=== PATIENT | female | born 1975 | race Caucasian/White ===

== ENCOUNTER → 2017-06-25 17:24 | Outpatient (REF) | payer BC, SELFPAY | LOC: LAB 17:24 | PROVIDERS: Visit Provider Nurse Practitioner Obstetrics & Gynecology | DX: Z34.90 Encounter for supervision of normal pregnancy, unspecified, unspecified trimester (principal) | CPT/HCPCS: 86403 ==

== ENCOUNTER 2017-07-17 05:27 | Inpatient (IN) | payer BC, SELFPAY ==
[2017-07-16 20:30] VITALS: BP 119/55; PULSE 70; RESP 18; TEMP 36.6; O2SAT 97
[2017-07-17] VITALS (7 sets, daily range): BP systolic 97–133; BP diastolic 44–77; PULSE 14–78; RESP 14–20; TEMP 36.1–36.7; O2SAT 93–97; BMI 34.1
[2017-07-17 06:23] LABS: Basophils % 0.2 % (0.1-2.0); Eosinophils # 0.1 K/mm3 (0.0-0.4); Eosinophils % 1.6 % (0.1-12.0); Hematocrit 40.4 % (37.0-47.0); Hemoglobin 13.8 g/dL (12.2-16.2); Lymphocytes # 1.5 K/mm3 (0.7-4.5); Lymphocytes % 17.7 K/mm3 (10-50); Mean Corpuscular HGB Conc 34.1 g/dL (31.8-35.4); Mean Corpuscular Hemoglobin 31.5 pg (27.0-31.2); Mean Corpuscular Volume 92.5 fl (81-99); Monocytes # 0.6 K/mm3 (0.1-1.0); Monocytes % 7.3 % (1.7-9.3); Neutrophils # 6.2 K/mm3 (1.8-7.8); Neutrophils % 73.3 % (37.0-80.0); Platelet Count 165 K/mm3 (142-424); Red Blood Count 4.37 M/mm3 (4.20-5.40); Red Cell Distribution Width 13.1 % (11.5-17.5); White Blood Count 8.4 K/mm3 (4.8-10.8)
[2017-07-17 06:27] LABS: Anion Gap 8.3 mEq/L (5-15); Blood Urea Nitrogen 11 mg/dL (7-18); Carbon Dioxide 22 mmol/L (21.0-32.0); Chloride 104 mmol/L (98-107); Creatinine Clearance Estimated 179 mL/min (0-300); Creatinine,Serum 0.64 mg/dL (0.55-1.02); Estimated Glomerular Filt Rate 102 ml/min (>60); GFR (African American) 123 ML/MIN (>60); Glucose 88 mg/dL (74-106); Potassium 3.3 mmoL/L (3.5-5.1); Sodium 131 mmol/L (136-145)
--- NOTE | 2017-07-17 06:33 | US_ITS ---
US OB limited position: Indication: ITS.REASON: POSITION BREECH ORDERING PHYSICIAN: Vipul Steen MD PATIENT AGE: 42 years FINDINGS: Limited of obstetrical ultrasound performed to determine disposition. The fetus is in breech presentation. heart tones are present at 122 bpm. Biometric measurements and placental evaluation was not performed. IMPRESSION: Breech position of the fetus
--- NOTE | 2017-07-17 07:10 | HMH.ANESCL ---
[facility] Anesthesia Checklist - Patient Identification Patient Identification: Arm Band - Structural Data Admitted From: Home Planned Operative Procedure/s: primary c/s Consent for Planned Operative Procedure(s) Verified: Yes Verified Documents: Surgical Consent, History and Physical - NPO Status Verified Time NPO: 00:00 - Additional verifications Anesthesia Reactions: No - Airway Assessment C-Spine Mobility Assessed: Yes (mp2) TMJ Mobility Assessed: Yes Dentition: Good Dentition - Neurological Assessment Level of Consciousness: Awake, Alert - Anesthesia Plan Anesthesia Risk discussed: Yes Anesthesia Plan: Verified ASA Class: II Anesthesia Type: Spinal [facility] Anesthesia HX I have reviewed the patient's past medical history: Yes Medical History: Denies:: Anxiety, Asthma, Depression Laterality Cases: Bilateral: Tonsillectomy Other Surgeries: Yes: Tubal Ligation (plus reversal) Amputation: No Fractures: No *Family Hx:: Cancer, Heart Attack, Hypertension
--- NOTE | 2017-07-17 07:33 | P.HP_ITS ---
OB - H&P: HPI Antepartum - History of Present Illness Chief complaint: Breech presentation at term - History of Present Criteria for establishing EDC:: LMP confirmed by 1st trimester US care: good care Ultrasounds: normal 1st trimester US, normal mid trimester US, abnormal US findings Obstetrical complications: malpresentation Medical complications: none Planning to breastfeed?: Yes [facility] History I have reviewed the patient's past medical history: Yes Medical History: Denies:: Anxiety, Asthma, Depression Laterality Cases: Bilateral: Tonsillectomy Other Surgeries: Yes: Tubal Ligation (plus reversal) Amputation: No Fractures: No - *Social History Smoking Status: Former smoker # Packs/Day (cigarettes): 1 Alcohol Intake: former Alcohol Intake Frequency:: holidays/special occasions only Substance Use Type: denies use - Psychiatric History Pschychiatric History:: Denies:: Anxiety, Depression *Family Hx:: Cancer, Heart Attack, Hypertension Para: 3 Review of Systems - Review of Systems Review of systems:: pertinent systems reviewed and negative unless documented below Meds Home Medications Medication Instructions Recorded Confirmed Type ferrous sulfate 325 mg (65 mg 325 mg PO QDAY tab 05/15/17 History iron) tablet,delayed release 1 tab PO QDAY 05/15/17 History vitamin,calcium,pbexjozc-ojwr-laqff acid tablet Allergies Allergy/AdvReac Type Severity Reaction Status Date / Time Penicillins [PENICILLINS] Allergy Intermediate I-RASH Verified 07/15/17 14:57 OB - H&P: Exam - Physical Exam Vital signs: Temp Pulse Resp BP Pulse Ox 97.8 F 68 18 123/71 97 07/17/17 05:57 07/17/17 05:57 07/17/17 05:57 07/17/17 05:57 07/17/17 05:57 - Constitutional no acute distress OB - Results - Labs Labs: Short CBC 07/17/17 Range/Units 06:00 WBC 8.4 (4.8-10.8) K/mm3 Hgb 13.8 (12.2-16.2) g/dL Hct 40.4 (37.0-47.0) % Plt Count 165 (142-424) K/mm3 BMP 07/17/17 06:00 Sodium 131 L Potassium 3.3 L Chloride 104 Carbon Dioxide 22 BUN 11 Creatinine 0.64 Glucose 88 OB - A/P Antepartum (1) Breech presentation at Current visit: Yes Status: Acute - Additional Plan Plan: other (Her baby continues to be in the breech presentation and we will perform a primary lower segment transverse section.) Planning to breastfeed?: Yes
[2017-07-17 07:57] LABS: Cord Blood PH 7.38 (7.35-7.45)
--- NOTE | 2017-07-17 08:29 | HMH.OPNOTE ---
Date of procedure: 07/17/17 Pre-op Diagnosis:: Term , breech presentation Post-op Diagnosis:: Term , breech presentation Procedure performed:: Mammary lower segment transverse section Surgeon:: Vipul Steen MD Yard Hostler(s):: Rosaline Reynaga [employer] SUPERVISOR:: Dickson Glass Anesthesia: spinal Estimated blood loss (mL): 600 Clinical Note:: She is a 42-year-old 4 para 3 who is 39 weeks gestational age. She has been followed over the last few weeks with a breech presentation and since she was term we elected to perform a primary lower segment transverse section. Risks and benefits of surgery were discussed with the patient prior to surgery. Operative findings:: She delivered a liveborn male child at 7:49 AM on the morning of July 17, 2017. The baby was in the angelica breech presentation. He had Apgars of 9 at 1 minute and 10 at 5 minutes. PH was 7.38. Operative note:: She was taken to the operating room where spinal anesthesia was found be adequate. She was prepped and draped in normal sterile fashion in the supine position with a leftward tilt. A Pulido catheter was in the bladder. A Pfannenstiel skin incision was made with knife then carried through to the underlying layer of fascia with cautery. The fascia was opened in the midline with cautery and extended laterally using Lim scissors. [place] clamps were applied to the superior aspect of the fascial incision which was tented up and the underlying rectus muscles dissected off using cautery. The [place] clamps were then applied to the inferior aspect of the fascial incision which in a similar fashion was tented up and the underlying rectus muscles dissected off using cautery. The rectus muscles were then in the midline, the peritoneum identified, and entered sharply with Metzenbaum scissors. This incision was then extended superiorly and inferiorly with cautery. We had good visualization of the bladder inferiorly. The bladder peritoneum was then opened in the midline and extended laterally using Metzenbaum scissors. A bladder flap was created digitally. The lower blade of the Mo was inserted so as to push the bladder out of the way. Transverse incision was made through the uterine muscle to the amnion. This incision was then extended laterally using fingers traction. The amnion was entered sharply with knife. The 's breech was then delivered atraumatically. This was followed by the after coming shoulders and the rest of the 's head atraumatically. The oropharynx and nasopharynx were bulb suctioned. The infant was then handed off to her Miguel who assigned Apgars of 9 at 1 minute and 10 at 5 minutes. We then obtained cord blood as well as cord pH. The pH was 7.38 Using gentle traction on the cord and countertraction on the fundus I was able to easily deliver the placenta intact. It had a normal three-vessel cord. The uterus was then cleared of clots and debris and exteriorized from the abdominal cavity. The uterine incision was then closed using running 0 Vicryl suture in a locked fashion. A second layer of the same suture was used to imbricate the first layer. A third layer was further used to completely imbricate the uterine muscle. The bladder peritoneum was then closed using running 2-0 Vicryl suture in a locked fashion. This large piece of [place]elf[place]am between the peritoneum and muscle of the uterus prior to completely closing the peritoneum of the bladder. The gutters and cul-de-sac were then cleared of clots and debris and the uterus was returned the abdominal cavity. Once again hemostasis was assured. The peritoneum was grasped with [place] clamps and closed using running 2-0 Vicryl suture. The rectus muscles were then reapproximated using running 0 Vicryl suture. The fascia was closed using running #1 Vicryl suture. The subcutaneous tissues were then irrigated with warm water followed by closure Pamela's fascia using running 2-0 [place]
--- NOTE | 2017-07-17 08:33 | P.OP_ITS ---
Date of procedure: 07/17/17 Pre-op Diagnosis:: Term , breech presentation Post-op Diagnosis:: Term , breech presentation Procedure performed:: Mammary lower segment transverse section Surgeon:: Vipul Steen MD Supervisor [employer](s):: Rosaline Reynaga QUALITY ASSURANCE ENGINEER:: Dickson Glass Anesthesia: spinal Estimated blood loss (mL): 600 Clinical Note:: She is a 42-year-old 4 para 3 who is 39 weeks gestational age. She has been followed over the last few weeks with a breech presentation and since she was term we elected to perform a primary lower segment transverse section. Risks and benefits of surgery were discussed with the patient prior to surgery. Operative findings:: She delivered a liveborn male child at 7:49 AM on the morning of July 17, 2017. The baby was in the angelica breech presentation. He had Apgars of 9 at 1 minute and 10 at 5 minutes. PH was 7.38. Operative note:: She was taken to the operating room where spinal anesthesia was found be adequate. She was prepped and draped in normal sterile fashion in the supine position with a leftward tilt. A Pulido catheter was in the bladder. A Pfannenstiel skin incision was made with knife then carried through to the underlying layer of fascia with cautery. The fascia was opened in the midline with cautery and extended laterally using Lim scissors. [place] clamps were applied to the superior aspect of the fascial incision which was tented up and the underlying rectus muscles dissected off using cautery. The [place] clamps were then applied to the inferior aspect of the fascial incision which in a similar fashion was tented up and the underlying rectus muscles dissected off using cautery. The rectus muscles were then in the midline, the peritoneum identified, and entered sharply with Metzenbaum scissors. This incision was then extended superiorly and inferiorly with cautery. We had good visualization of the bladder inferiorly. The bladder peritoneum was then opened in the midline and extended laterally using Metzenbaum scissors. A bladder flap was created digitally. The lower blade of the Mo was inserted so as to push the bladder out of the way. Transverse incision was made through the uterine muscle to the amnion. This incision was then extended laterally using fingers traction. The amnion was entered sharply with knife. The 's breech was then delivered atraumatically. This was followed by the after coming shoulders and the rest of the 's head atraumatically. The oropharynx and nasopharynx were bulb suctioned. The infant was then handed off to her Miguel who assigned Apgars of 9 at 1 minute and 10 at 5 minutes. We then obtained cord blood as well as cord pH. The pH was 7.38 Using gentle traction on the cord and countertraction on the fundus I was able to easily deliver the placenta intact. It had a normal three-vessel cord. The uterus was then cleared of clots and debris and exteriorized from the abdominal cavity. The uterine incision was then closed using running 0 Vicryl suture in a locked fashion. A second layer of the same suture was used to imbricate the first layer. A third layer was further used to completely imbricate the uterine muscle. The bladder peritoneum was then closed using running 2-0 Vicryl suture in a locked fashion. This large piece of [place] between the peritoneum and muscle of the uterus prior to completely closing the peritoneum of the bladder. The gutters and cul-de-sac were then cleared of clots and debris and the uterus was returned the abdominal cavity. Once again hemostasis was assured. The peritoneum was grasped with [place] clamps and closed usin
--- NOTE | 2017-07-17 08:33 | HMH.ANESI ---
[facility] Anesthesia Record Part I Intake, IV Amount: 1,800 Estimated blood loss (mL): 600 Urine output (mL): 100 Blood Pressure: 133/46 SaO2: 93 Pulse Rate: 14 Respiratory Rate: 14 Temperature: 97 F Patient is:: Awake, Stable Stable to PACU at:: 08:30
--- NOTE | 2017-07-17 08:34 | HMH.ANESII ---
[facility] Anesthesia Record Part II Discharge Time: 09:00 Destination: Obstetric PACU nurse assessment reviewed?: Yes Patient Condition:: Good Anesthesia Complications:: None
--- NOTE | 2017-07-17 09:41 | P.PN_ITS ---
Internal Medicine - PN: Subj *Date: 07/17/17 *Time: 09:40 Interval history: Patient had low blood pressure post . It was 88/50. Is now 110/60. She has not put out much urine since her surgery. On examination she looks well her color is good her cheeks are darlyn. I suspect she is just dehydrated and vasodilated as result of the spinal. We will get an H&H and we will give her more fluids. We will continue to monitor her closely. Her uterus is well contracted. Her lochia is minimal. Exam Vital signs and Labs for Last 24 Hours: Temp Pulse Resp BP Pulse Ox 97 F L 68 18 104/58 95 07/17/17 08:34 07/17/17 08:40 07/17/17 08:40 07/17/17 08:40 07/17/17 08:40 Laboratory Results - last 24 hr 07/17/17 06:00: WBC 8.4, RBC 4.37, Hgb 13.8, Hct 40.4, MCV 92.5, MCH 31.5 H, MCHC 34.1, RDW 13.1, Plt Count 165, MPV 10.0, Neut % (Auto) 73.3, Lymph % (Auto ) 17.7, [place] % (Auto) 7.3, Eos % (Auto) 1.6, Baso % (Auto) 0.2, Neut # (Auto) 6.2, Lymph # (Auto) 1.5, [place] # (Auto) 0.6, Eos # (Auto) 0.1, Baso # (Auto) 0.0 07/17/17 06:00: Sodium 131 L, Potassium 3.3 L, Chloride 104, Carbon Dioxide 22, Anion Gap 8.3, BUN 11, Creatinine 0.64, Estimated Creat Clear 179, Estimated GFR 102, Est GFR ( Amer) 123, Glucose 88 07/17/17 06:00: Blood Type O Negative, Antibody Screen Negative 07/17/17 07:50: Cord ABG pH 7.38 I & O for Last 24 hours: Intake & Output 07/14/17 07/15/17 07/16/17 07/17/17 11:59 11:59 11:59 11:59 Intake Total 1799 / 1800 Balance 1800 / 1800 Weight 218 lb 2 oz - Constitutional no acute distress Assessment and Plan (1) Breech presentation at Current visit: Yes Status: Acute Category: Medical Code(s): O32.1XX0 - Maternal care for breech presentation, not applicable or unspecified - Assessment and plan all Dx Assessment and Plan for all problems:: She has good color so I do not suspect that she is actively bleeding. We will give her more fluids since she is likely dehydrated. We have ordered an H&H.
[2017-07-17 09:51] LABS: Hematocrit 37.4 % (37.0-47.0)
[2017-07-17 09:54] LABS: Hemoglobin 12.2 g/dL (12.2-16.2)
--- NOTE | 2017-07-17 12:11 | SUR.OPER ---
749-viable infant male born at this time
[2017-07-17 12:52] LABS: Microscopic,Cath URINE MICROSCOPIC (MICROSCOPIC)
[2017-07-17 12:55] LABS: Appearance,Urine/Cath CLEAR (Clear); Bilirubin,Cath Negative (Negative); Blood, Urine/Cath Negative (Negative); Color,Urine/Cath YELLOW (Yellow); Glucose,Urine/Cath (UA) Negative (Negative); Ketones,Urine/Cath Negative (Negative); Leukocyte Esterase,Cath Negative (Negative); Nitrate,Cath Negative (Negative); Protein,Urine/Cath Negative (Negative); Specific Gravity, Urine/Cath 1.025 (1.005-1.030); Urobilinogen,Cath 0.2 EU/dl (0.2)
[2017-07-17 13:07] LABS: Bacteria,Urine/Cath 1+ /lpf; RBC,Urine/Cath Occasional # /hpf (0-3)
[2017-07-18 06:36] LABS: Basophils % 0.1 % (0.1-2.0); Eosinophils # 0.1 K/mm3 (0.0-0.4); Eosinophils % 0.8 % (0.1-12.0); Hematocrit 35.3 % (37.0-47.0); Hemoglobin 11.7 g/dL (12.2-16.2); Lymphocytes # 1.3 K/mm3 (0.7-4.5); Lymphocytes % 11.4 K/mm3 (10-50); Mean Corpuscular HGB Conc 33.1 g/dL (31.8-35.4); Mean Corpuscular Hemoglobin 30.9 pg (27.0-31.2); Mean Corpuscular Volume 93.3 fl (81-99); Mean Platelet Volume 10.3 fl (7.4-10.4); Monocytes # 0.8 K/mm3 (0.1-1.0); Neutrophils # 9.3 K/mm3 (1.8-7.8); Neutrophils % 80.8 % (37.0-80.0); Platelet Count 154 K/mm3 (142-424); Red Blood Count 3.78 M/mm3 (4.20-5.40); Red Cell Distribution Width 13.2 % (11.5-17.5); White Blood Count 11.5 K/mm3 (4.8-10.8)
--- NOTE | 2017-07-18 07:52 | P.PN_ITS ---
Internal Medicine - PN: Subj *Date: 07/18/17 *Time: 07:52 Interval history: She is doing well this morning. She is eating and drinking and ambulating. She is breast-feeding. Her pain is well controlled. Her incision is clean and dry. Exam Vital signs and Labs for Last 24 Hours: Temp Pulse Resp BP Pulse Ox 98.0 F 78 18 111/77 95 07/17/17 09:00 07/17/17 09:00 07/17/17 16:18 07/17/17 09:00 07/17/17 09:00 Laboratory Results - last 24 hr 07/17/17 06:00: Blood Type O Negative, Antibody Screen Negative 07/17/17 06:20: Baby's Rh Status Positive 07/17/17 07:25: Urine Color Yellow, Urine Appearance Clear, Urine pH 6.0, Ur Specific [place] 1.025, Urine Protein Negative, Urine Glucose (UA) Negative, Urine Ketones Negative, Urine Blood Negative, Urine Nitrate Negative, Urine Bilirubin Negative, Urine Urobilinogen 0.2, Ur Leukocyte Esterase Negative, Urine RBC Occasional, Urine WBC 3-5, Ur Squamous Epith Cells 5-10, Urine Bacteria 1+, Hyaline Casts 3-5 07/17/17 07:50: Cord ABG pH 7.38 07/17/17 09:35: Hgb 12.2 D, Hct 37.4 07/18/17 06:20: WBC 11.5 H D, RBC 3.78 L, Hgb 11.7 L, Hct 35.3 L, MCV 93.3, MCH 30.9, MCHC 33.1, RDW 13.2, Plt Count 154, MPV 10.3, Neut % (Auto) 80.8 H, Lymph % (Auto) 11.4, [place] % (Auto) 7.0, Eos % (Auto) 0.8, Baso % (Auto) 0.1, Neut # ( Auto) 9.3 H, Lymph # (Auto) 1.3, [place] # (Auto) 0.8, Eos # (Auto) 0.1, Baso # ( Auto) 0.0 I & O for Last 24 hours: Intake & Output 07/15/17 07/16/17 07/17/17 07/18/17 11:59 11:59 11:59 11:59 Intake Total 1800 / 1800 Output Total 100 / 100 Balance 1700 / 1700 Weight 218 lb 2 oz - Constitutional no acute distress Assessment and Plan (1) Breech presentation at Current visit: Yes Status: Acute Category: Medical Code(s): O32.1XX0 - Maternal care for breech presentation, not applicable or unspecified - Assessment and plan all Dx Assessment and Plan for all problems:: She continues to do very well. She will be discharged home in 48 hours.
--- NOTE | 2017-07-18 07:55 | HMH.PHAVTE ---
[facility] Pharmacy VTE Monitoring - Patient Demographics Admission date: 07/17/17 Report Date: 07/18/17 Time: 07:55 Allergies/Adverse Reactions: Patient Allergies Penicillins [PENICILLINS] Allergy (Intermediate, Verified 07/15/17 14:57) I-RASH Height: 1.7 m Weight: 98.94 kg Patient Problems: Current Active Problems Breech presentation at (Acute) - VTE Risk Labs: VTE Related Lab Results Hgb 11.7 g/dL (12.2-16.2) L 07/18/17 06:20 Hct 35.3 % (37.0-47.0) L 07/18/17 06:20 Plt Count 154 K/mm3 (142-424) 07/18/17 06:20 BUN 11 mg/dL (7-18) 07/17/17 06:00 Creatinine 0.64 mg/dL (0.55-1.02) 07/17/17 06:00 Estimated Creat Clear 179 mL/min (0-300) 07/17/17 06:00 Clinical Trial Participant: No - Prophylaxis VTE Prophylaxis Ordered?: Yes Types of VTE Prophylaxis: IPCS Knee High
--- NOTE | 2017-07-19 09:18 | CARE MANAGER ---
MOM AND ARE DOING WELL AND WILL DISCHARGE OVER THE WEEKEND WITH AFTERCARE INSTRUCTIONS.
--- NOTE | 2017-07-19 09:33 | HMH.ACPN2 ---
Internal Medicine - PN: Subj *Date: 07/19/17 *Time: 09:33 Interval history: She is doing very well this morning. She is eating and drinking and ambulating. She is breast-feeding. Her lochia is normal. Exam Vital signs and Labs for Last 24 Hours: Temp Pulse Resp BP Pulse Ox 98.0 F 78 18 111/77 95 07/17/17 09:00 07/17/17 09:00 07/17/17 16:18 07/17/17 09:00 07/17/17 09:00 I & O for Last 24 hours: Intake & Output 07/16/17 07/17/17 07/18/17 07/19/17 11:59 11:59 11:59 11:59 Intake Total 1800 / 1800 Output Total 100 / 100 Balance 1700 / 1700 Weight 218 lb 2 oz 218 lb 2 oz - Constitutional no acute distress Assessment and Plan (1) Breech presentation at Current visit: Yes Status: Acute Category: Medical Code(s): O32.1XX0 - Maternal care for breech presentation, not applicable or unspecified - Assessment and plan all Dx Assessment and Plan for all problems:: She continues to do very well. We will plan to send her home tomorrow.
--- NOTE | 2017-07-20 13:43 | HMH.DCSUM ---
General - General Admission date: 07/17/17 Discharge date: 07/20/17 HPI HPI: POD # 3 primary cs for breech presentation. Postop course uneventful; ambulating, voiding & tolerating regular diet without difficulty. Lochia appropriate; postop Hgb mild anemia 11.7, asymptomatic. discharged home with f/u 1 week office. Hospital Course Hospital Course: per HPI note Objective Vital signs: Temp Pulse Resp BP Pulse Ox 98.0 F 78 18 111/77 95 07/17/17 09:00 07/17/17 09:00 07/17/17 16:18 07/17/17 09:00 07/17/17 09:00 no acute distress - *Routine Abdominal Exam Present: soft Comments: appropriately tender, non-distended - *Routine Extremities Exam Present: edema (1+) - *Routine Skin Exam Present: intact, dry, warm - *Routine Neurological Exam Present: alert, oriented X3 - Routine Psychiatric Exam Present: normal affect DS: Diagnosis - Discharge Diagnosis (1) Delivered by section Status: Acute Problem details: continue routine postop care. (2) Breech presentation at Status: Acute Problem details: primary cs for delivery (3) Anemia associated with acute blood loss Status: Acute Problem details: mild anemia 11.7, asymptomatic. continue PNV with feso4 Discharge Plan - Patient Discharge Instructions ACTIVITY: Limited activity, No heavy lifting DIET: advance to your usual diet Patient Instructions: DI for , DI for and Nipple Soreness - Follow up Plan Disposition: Home, Self-Long Term Medications: Home Medications Medication Instructions Recorded Confirmed Type ferrous sulfate 325 mg (65 mg 325 mg PO DAILY tab 05/15/17 07/17/17 History iron) tablet,delayed release 1 tab PO DAILY 05/15/17 07/17/17 History vitamin,calcium,okclqqqs-lqmv-aairk acid tablet Prescriptions/Medication Reconciliation: New Ibuprofen [Motrin 400mg tablet] 400 mg PO Q4HP PRN tablet PRN Reason: Mild To Moderate Pain Oxycodone HCl [OxyIR 5mg tablet] 5 mg PO Q4HP PRN #30 tablet PRN Reason: Moderate Pain Acetaminophen [Acetaminophen 325mg tab] 650 mg PO Q4HP PRN tablet PRN Reason: Mild Pain Continue vitamin,calcium,bnspbmfr-axxm-yiejp acid tablet 1 tab PO DAILY No Action ferrous sulfate 325 mg (65 mg iron) tablet,delayed release 325 mg PO DAILY tab
--- NOTE | 2017-07-20 15:46 | P.DS_ITS ---
General - General Admission date: 07/17/17 Discharge date: 07/20/17 HPI HPI: POD # 3 primary cs for breech presentation. Postop course uneventful; ambulating, voiding & tolerating regular diet without difficulty. Lochia appropriate; postop Hgb mild anemia 11.7, asymptomatic. discharged home with f/u 1 week office. Hospital Course Hospital Course: per HPI note Objective Vital signs: Temp Pulse Resp BP Pulse Ox 98.0 F 78 18 111/77 95 07/17/17 09:00 07/17/17 09:00 07/17/17 16:18 07/17/17 09:00 07/17/17 09:00 no acute distress - *Routine Abdominal Exam Present: soft Comments: appropriately tender, non-distended - *Routine Extremities Exam Present: edema (1+) - *Routine Skin Exam Present: intact, dry, warm - *Routine Neurological Exam Present: alert, oriented X3 - Routine Psychiatric Exam Present: normal affect DS: Diagnosis - Discharge Diagnosis (1) Delivered by section Status: Acute Problem details: continue routine postop care. (2) Breech presentation at Status: Acute Problem details: primary cs for delivery (3) Anemia associated with acute blood loss Status: Acute Problem details: mild anemia 11.7, asymptomatic. continue PNV with feso4 Discharge Plan - Patient Discharge Instructions ACTIVITY: Limited activity, No heavy lifting DIET: advance to your usual diet Patient Instructions: DI for , DI for and Nipple Soreness - Follow up Plan Disposition: Home, Self-Longterm Medications: Home Medications Medication Instructions Recorded Confirmed Type ferrous sulfate 325 mg (65 mg 325 mg PO DAILY tab 05/15/17 07/17/17 History iron) tablet,delayed release 1 tab PO DAILY 05/15/17 07/17/17 History vitamin,calcium,wwwjjdvv-wwwk-lfqow acid tablet Prescriptions/Medication Reconciliation: New Ibuprofen [Motrin 400mg tablet] 400 mg PO Q4HP PRN tablet PRN Reason: Mild To Moderate Pain Oxycodone HCl [OxyIR 5mg tablet] 5 mg PO Q4HP PRN #30 tablet PRN Reason: Moderate Pain Acetaminophen [Acetaminophen 325mg tab] 650 mg PO Q4HP PRN tablet PRN Reason: Mild Pain Continue vitamin,calcium,kmthlehi-twfj-xqatj acid tablet 1 tab PO DAILY No Action ferrous sulfate 325 mg (65 mg iron) tablet,delayed release 325 mg PO DAILY tab
== END 2017-07-20 17:10 | disposition home or self-care (01) | DRG 766 ==
PROVIDERS: Admitting Provider Nurse Practitioner Obstetrics & Gynecology; Family Provider Family Medicine; PCP Family Medicine; Visit Provider Nurse Practitioner Obstetrics & Gynecology
PROC: 10D00Z1 Extraction of Products of Conception, Low, Open Approach (ICD-10-PCS; CPT 59514; principal; 2017-07-17 07:30)
DX: O64.1XX0 Obstructed labor due to breech presentation, not applicable or unspecified (principal); Z37.0 Single live birth; Z3A.39 39 weeks gestation of pregnancy
CPT/HCPCS: 59514; 36415; 59025; 76815; 80048; 81001; 82800; 85014; 85018; 85025; 85461; 86850; J1956; J2790

== ENCOUNTER 2017-07-26 22:25 | Inpatient (IN) | payer BC, SELFPAY ==
[2017-07-26 22:31] VITALS: BP 160/114; PULSE 57; RESP 20; TEMP 36.5; O2SAT 97; BMI 34.4
--- NOTE | 2017-07-26 22:39 | XR_ITS ---
XR chest 2V COMPARISON: CT scan the chest 07/27/2017 HISTORY: Shortness of breath TECHNIQUE: PA and lateral chest FINDINGS: This is an adequate inspiration. There are bilateral pleural effusions larger right side than left. There are subtle patchy ill-defined opacities in both lung crooks. Evaluation of the pulmonary vascularity is somewhat difficult but there is no obvious pulmonary congestion. There is an azygos lobe noted. There is an area of increased opacity projecting over the right heart border at the cardiophrenic angle and focal pneumonic infiltrate versus partial right lower lobe collapse possibilities. IMPRESSION: 1. Mild cardio megaly with bilateral pleural effusions and certainly chronic congestive heart failure is a possibility. 2. Somewhat ill-defined opacities in the perihilar regions and at the right cardiophrenic angle and bilateral diffuse pneumonic infiltrates a possibility as well.
--- NOTE | 2017-07-26 22:49 | HMH.EDGENADL ---
ED Disposition Clinical Impression: Pleural effusion, Peripheral edema, Hemoptysis Hypertension Qualifiers: Hypertension type: unspecified Qualified Code(s): I10 - Essential (primary) hypertension Dyspnea Qualifiers: Dyspnea type: shortness of breath Qualified Code(s): R06.02 - Shortness of breath Disposition: Still a Patient Condition on Discharge: Good Referrals: Kyle Rivera MD [Primary Care Provider] - - Critical Care Critical Care Time: Yes Attestation: On 07/26/17, the high probability of a clinically significant, sudden or life threatening deterioration of the following system(s) required my full and direct attention, intervention and personal management. The time I documented below is in addition to time spent performing reported procedures but includes the following listed in this critical care notation. Total Critical Care Time: 45 Vital system(s) involved:: Circulatory Failure My critical care processes included: Assessment & monitoring of V/S, Initial and Re-exams, Data Review/Interpretation, Coordinating Care, Medication Orders and management, Documentation Medical Decision Making - Lan Inquiry Pt receiving controlled substance: No Vital Signs: 07/26/17 22:31 07/26/17 23:26 07/27/17 03:30 Temperature 97.7 F 98.9 F Temperature Source Oral Oral Pulse Rate [Right Radial] 57 L 63 77 Respiratory Rate 20 20 Blood Pressure [Right Arm] 160/114 139/97 129/105 Blood Pressure Mean [Right Arm] 129 111 113 Blood Pressure Source [Right Arm] Automatic Cuff Blood Pressure Position [Right Arm] Sitting Supine Sitting 02 Sat by Pulse Oximetry 97 95 99 Oxygen Delivery Method Room Air 07/27/17 03:48 Temperature 98.9 F Temperature Source Oral Pulse Rate [Right Radial] 62 Respiratory Rate 20 Blood Pressure [Right Arm] 168/82 Blood Pressure Mean [Right Arm] 110 Blood Pressure Source [Right Arm] Manual Cuff/ Auscultation Blood Pressure Position [Right Arm] Sitting 02 Sat by Pulse Oximetry 99 Oxygen Delivery Method Room Air - Lab Data Lab Results 07/26/17 22:40: WBC 5.7, RBC 3.22 L, Hgb 10.3 L, Hct 30.5 L, MCV 94.7, MCH 31.9 H, MCHC 33.6, RDW 13.4, Plt Count 178, MPV 8.3, Neut % (Auto) 66.5, Lymph % (Auto) 22.8, [place] % (Auto) 7.7, Eos % (Auto) 2.6, Baso % (Auto) 0.3, Neut # (Auto) 3.8, Lymph # (Auto) 1.3, [place] # (Auto) 0.4, Eos # (Auto) 0.2, Baso # (Auto) 0.0 07/26/17 22:40: Sodium 145, Potassium 3.9, Chloride 110 H, Carbon Dioxide 24, Anion Gap 14.9, BUN 22 H, Creatinine 0.95, Estimated Creat Clear 122, Estimated GFR 65, Est GFR ( Amer) 78, Glucose 104, Calcium 8.2 L, Total Bilirubin 0.2, AST 21, ALT 37, Alkaline Phosphatase 70, Total Creatine Kinase 55, CK-MB (CK-2) 1.3, CK-MB (CK-2) Rel Index 2.4, Troponin I < 0.02, Total Protein 5.9 L, Albumin 2.6 L, Globulin 3.3 H, Albumin/Globulin Ratio 0.8 L 07/26/17 22:40: Lactic Acid 1.1 07/26/17 22:40: Influenza Type A Ag Negative, Influenza Type B Ag Negative, Group A Strep Rapid Negative 07/27/17 01:35: B-Natriuretic Peptide 471 H 07/27/17 03:40: Urine Color Yellow, Urine Appearance Clear, Urine pH 5.0, Ur Specific [place] 1.015, Urine Protein Negative, Urine Glucose (UA) Negative, Urine Ketones Negative, Urine Blood 3+, Urine Nitrate Negative, Urine Bilirubin Negative, Urine Urobilinogen 0.2, Ur Leukocyte Esterase Negative, Urine RBC 10-20, Ur Squamous Epith Cells 3-5, Ur Renal Epithelial Cell 3-5, Amorphous Sediment Trace Result diagrams: 07/26/17 22:40 07/26/17 22:40 Orders (Tests/Meds): ED MEDICATIONS Generic Name Dose Route Start Last Admin Trade Name Freq PRN Reason Stop Dose Admin Ceftriaxone Sodium 1 gm/ 50 mls @ 100 mls/hr 07/27/17 04:15 Sodium Chloride IV 08/10/17 04:14 Q24H JOSIE Protocol Magnesium Sulfate 20 gm in 500 mls @ 50 mls/hr 07/27/17 04:15 Magnesium Sulfate 20gm/500ml Premix IV 08/26/17 04:14 .Q10H JOSIE 2 GM/HR Labetalol HCl 200 mg 07/27/17 09:00 Normodyne 20
[2017-07-26 23:01] LABS: Basophils % 0.3 % (0.1-2.0); Eosinophils # 0.2 K/mm3 (0.0-0.4); Eosinophils % 2.6 % (0.1-12.0); Hematocrit 30.5 % (37.0-47.0); Hemoglobin 10.3 g/dL (12.2-16.2); Lymphocytes # 1.3 K/mm3 (0.7-4.5); Lymphocytes % 22.8 K/mm3 (10-50); Mean Corpuscular HGB Conc 33.6 g/dL (31.8-35.4); Mean Corpuscular Hemoglobin 31.9 pg (27.0-31.2); Mean Corpuscular Volume 94.7 fl (81-99); Mean Platelet Volume 8.3 fl (7.4-10.4); Monocytes # 0.4 K/mm3 (0.1-1.0); Monocytes % 7.7 % (1.7-9.3); Neutrophils # 3.8 K/mm3 (1.8-7.8); Neutrophils % 66.5 % (37.0-80.0); Platelet Count 178 K/mm3 (142-424); Red Blood Count 3.22 M/mm3 (4.20-5.40); Red Cell Distribution Width 13.4 % (11.5-17.5); White Blood Count 5.7 K/mm3 (4.8-10.8)
[2017-07-26 23:25] LABS: Lactic Acid 1.1 mmol/L (0.4-2.0)
[2017-07-26 23:26] VITALS: BP 139/97; PULSE 63; O2SAT 95
[2017-07-26 23:34] LABS: Alanine Aminotransferase 37 U/L (12-78); Albumin Level 2.6 gm/dL (3.4-5.0); Albumin/Globulin Ratio 0.8 (1.1-1.8); Alkaline Phosphatase 70 U/L (46-116); Anion Gap 14.9 mEq/L (5-15); Aspartate Amino Transferase 21 U/L (15-37); Bilirubin,Total 0.2 mg/dL (0.2-1.0); Blood Urea Nitrogen 22 mg/dL (7-18); CKMB Relative Index 2.4 U/L (0-4.0); Calcium 8.2 mg/dL (8.5-10.1); Carbon Dioxide 24 mmol/L (21.0-32.0); Chloride 110 mmol/L (98-107); Creatine Kinase 55 U/L (26-192); Creatine Kinase MB 1.3 mg/ml (0.0-3.6); Creatinine Clearance Estimated 122 mL/min (0-300); Creatinine,Serum 0.95 mg/dL (0.55-1.02); Estimated Glomerular Filt Rate 65 ml/min (>60); GFR (African American) 78 ML/MIN (>60); Globulin 3.3 gm/dl (1.3-3.2); Glucose 104 mg/dL (74-106); Potassium 3.9 mmoL/L (3.5-5.1); Sodium 145 mmol/L (136-145); Total Protein,Serum 5.9 gm/dL (6.4-8.2); Troponin I < 0.02 ng/ml (0.00-0.06)
[2017-07-26 23:49] LABS: Strep Scrn Group A (Rapid) Negative (Negative)
[2017-07-27] VITALS (22 sets, daily range): BP systolic 124–169; BP diastolic 69–105; PULSE 50–82; RESP 16–20; TEMP 36–37.2; O2SAT 88–100; BMI 34.1
--- NOTE | 2017-07-27 02:05 | CT_ITS ---
CT angio chest COMPARISON: PA and lateral chest same date HISTORY: Shortness of breath, hemoptysis, recent surgery 07/17/2017 TECHNIQUE: Multiaxial scans obtained from the thoracic inlet the hemidiaphragms after rapid injection of IV contrast. Sagittal and coronal reformats were evaluated as well. FINDINGS: This is a somewhat poor inspiration. There is excellent vascular opacification and there is no CT evidence of pulmonary emboli. There are bilateral pleural effusions larger right side than left. There is mild cardiomegaly with left ventricular prominence. Lung windows show bilateral ill-defined hazy and somewhat groundglass opacities in the perihilar regions and upper lobes but also minimally involving the lower lobes bilaterally. There is partial collapse of the right lower lobe. IMPRESSION: 1. Negative for PE 2. Bilateral ill-defined areas of airspace disease and pneumonia the likely possibility. The distribution of the ill-defined opacities is not typical for aspiration pneumonia however. Possibly pulmonary hemorrhage is a consideration as well. Amniotic fluid embolism is an outside possibility although I am not aware of the onset of the patient's symptoms. I basically agree with the [facility] report
--- NOTE | 2017-07-27 02:40 | PC.NURSE ---
Pt to radiology
[2017-07-27 03:46] LABS: Microscopic, Urine URINE MICROSCOPIC (MICROSCOPIC)
[2017-07-27 03:47] LABS: Appearance,Urine CLEAR (Clear); Bilirubin,Urine Negative (Negative); Blood, Urine 3+ (Negative); Color,Urine YELLOW (Yellow); Glucose,Urine (UA) Negative (Negative); Ketones,Urine Negative (Negative); Leukocyte Esterase,Urine Negative (Negative); Nitrate,Urine Negative (Negative); Protein,Urine Negative (Negative); Specific Gravity, Urine 1.015 (1.005-1.030); Urobilinogen,Urine 0.2 EU/dl (0.2)
[2017-07-27 03:49] LABS: Amorphous Sediment,Urine Trace /lpf
--- NOTE | 2017-07-27 04:23 | PC.NURSE ---
DR. MALDONADO AT BEDSIDE FOR EVAL
--- NOTE | 2017-07-27 04:50 | HMH.GYNCON ---
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 Syed is a 42 year old female CC: Kyle Rivera MD Review of Systems - Review of Systems Review of systems:: pertinent systems reviewed and negative unless documented below [facility] History I have reviewed the patient's past medical history: Yes Medical History: Denies:: Anxiety, Asthma, Cancer, Depression, Diabetes Mellitus Type 1, Diabetes Mellitus Type 2, MRSA Laterality Cases: Bilateral: Tonsillectomy Other Surgeries: Yes: Tubal Ligation (plus reversal) Amputation: No Fractures: No - *Social History Smoking Status: Former smoker # Packs/Day (cigarettes): 1 Alcohol Intake: never Alcohol Intake Frequency:: holidays/special occasions only Substance Use Type: denies use - Psychiatric History Expresses thoughts of harming self/others: None Suicide Plan Description: No Plan Pschychiatric History:: Denies:: Anxiety, Depression *Family Hx:: Cancer, Heart Attack, Hypertension Meds Home Medications Medication Instructions Recorded Confirmed Type 1 tab PO DAILY 05/15/17 07/26/17 History vitamin,calcium,rxltdugy-fmps-zlsqy acid tablet Allergies Allergy/AdvReac Type Severity Reaction Status Date / Time Penicillins [PENICILLINS] Allergy Intermediate I-RASH Verified 07/15/17 14:57 REFRACTORY REPAIRER - Exam Vital signs: Temp Pulse Resp BP Pulse Ox 98.9 F 62 20 168/82 99 07/27/17 03:48 07/27/17 03:48 07/27/17 03:48 07/27/17 03:48 07/27/17 03:48 - Constitutional no acute distress REFRACTORY REPAIRER - Results - Labs CBC & Chem 7: 07/26/17 22:40 07/26/17 22:40 Assessment and Plan (1) Dyspnea Current visit: Yes Status: Acute Qualifiers: Dyspnea type: shortness of breath Qualified Code(s): R06.02 - Shortness of breath; R06.00 - Dyspnea, unspecified; R06.01 - Orthopnea Category: Medical Code(s): R06.00 - Dyspnea, unspecified (2) Hypertension Current visit: Yes Status: Acute Qualifiers: Hypertension type: unspecified Qualified Code(s): I10 - Essential (primary) hypertension Category: Medical Code(s): I10 - Essential (primary) hypertension (3) Peripheral edema Current visit: Yes Status: Acute Category: Medical Code(s): R60.9 - Edema, unspecified (4) Pleural effusion Current visit: Yes Status: Acute Category: Medical Code(s): J90 - Pleural effusion, not elsewhere classified (5) Anemia associated with acute blood loss Problem details: mild anemia 11.7, asymptomatic. continue PNV with feso4 Current visit: No Status: Acute Category: Medical Code(s): D62 - Acute posthemorrhagic anemia (6) Breech presentation at Problem details: primary cs for delivery Current visit: No Status: Acute Category: Medical Code(s): O32.1XX0 - Maternal care for breech presentation, not applicable or unspecified (7) Delivered by section Problem details: continue routine postop care. Current visit: No Status: Acute Category: Medical Code(s): Z38.01 - Single liveborn , delivered by - Assessment and plan all Dx Assessment and Plan for all problems:: She has received 1 dose of labetalol 20 mg IV. She has received 40 mg of Lasix and will see how she does with her diuresis. Her CT scan is negative for a pulmonary embolus but I am concerned about cardiomyopathy. There is a suggestion of heart failure. All of her labs are negative with respect to help syndrome. She has no proteinuria. Her reflexes are 2+. She does have 3+ pedal edema. We will admit her for observation in a monitored bed. We will continue with labetalol 200 mg twice d
--- NOTE | 2017-07-27 04:55 | P.CONS_ITS ---
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 Syed is a 42 year old female CC: Kyle Rivera MD Review of Systems - Review of Systems Review of systems:: pertinent systems reviewed and negative unless documented below [facility] History I have reviewed the patient's past medical history: Yes Medical History: Denies:: Anxiety, Asthma, Cancer, Depression, Diabetes Mellitus Type 1, Diabetes Mellitus Type 2, MRSA Laterality Cases: Bilateral: Tonsillectomy Other Surgeries: Yes: Tubal Ligation (plus reversal) Amputation: No Fractures: No - *Social History Smoking Status: Former smoker # Packs/Day (cigarettes): 1 Alcohol Intake: never Alcohol Intake Frequency:: holidays/special occasions only Substance Use Type: denies use - Psychiatric History Expresses thoughts of harming self/others: None Suicide Plan Description: No Plan Pschychiatric History:: Denies:: Anxiety, Depression *Family Hx:: Cancer, Heart Attack, Hypertension Meds Home Medications Medication Instructions Recorded Confirmed Type 1 tab PO DAILY 05/15/17 07/26/17 History vitamin,calcium,syfodiyb-vuwb-oqlhq acid tablet Allergies Allergy/AdvReac Type Severity Reaction Status Date / Time Penicillins [PENICILLINS] Allergy Intermediate I-RASH Verified 07/15/17 14:57 CROSSING 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 - Exam Vital signs: Temp Pulse Resp BP Pulse Ox 98.9 F 62 20 168/82 99 07/27/17 03:48 07/27/17 03:48 07/27/17 03:48 07/27/17 03:48 07/27/17 03:48 - Constitutional no acute distress CROSSING SUPERVISOR - Results - Labs CBC & Chem 7: 07/26/17 22:40 07/26/17 22:40 Assessment and Plan (1) Dyspnea Current visit: Yes Status: Acute Qualifiers: Dyspnea type: shortness of breath Qualified Code(s): R06.02 - Shortness of breath; R06.00 - Dyspnea, unspecified; R06.01 - Orthopnea Category: Medical Code(s): R06.00 - Dyspnea, unspecified (2) Hypertension Current visit: Yes Status: Acute Qualifiers: Hypertension type: unspecified Qualified Code(s): I10 - Essential (primary ) hypertension Category: Medical Code(s): I10 - Essential (primary) hypertension (3) Peripheral edema Current visit: Yes Status: Acute Category: Medical Code(s): R60.9 - Edema , unspecified (4) Pleural effusion Current visit: Yes Status: Acute Category: Medical Code(s): J90 - Pleural effusion, not elsewhere classified (5) Anemia associated with acute blood loss Problem details: mild anemia 11.7, asymptomatic. continue PNV with feso4 Current visit: No Status: Acute Category: Medical Code(s): D62 - Acute posthemorrhagic anemia (6) Breech presentation at Problem details: primary cs for delivery Current visit: No Status: Acute Category: Medical Code(s): O32.1XX0 - Maternal care for breech presentation, not applicable or unspecified (7) Delivered by section Problem details: continue routine postop care. Current visit: No Status: Acute Category: Medical Code(s): Z38.01 - Single liveborn , deliver
--- NOTE | 2017-07-27 05:49 | PC.NURSE ---
URINE SENT TO LAB FOR F/C PROTOCOL.
[2017-07-27 06:01] LABS: Microscopic,Cath URINE MICROSCOPIC (MICROSCOPIC)
[2017-07-27 06:07] LABS: Magnesium 2.1 mg/dL (1.4-2.2)
[2017-07-27 06:23] LABS: Appearance,Urine/Cath CLEAR (Clear); Bilirubin,Cath Negative (Negative); Blood, Urine/Cath Negative (Negative); Color,Urine/Cath YELLOW (Yellow); Glucose,Urine/Cath (UA) Negative (Negative); Ketones,Urine/Cath Negative (Negative); Leukocyte Esterase,Cath Negative (Negative); Nitrate,Cath Negative (Negative); Protein,Urine/Cath Negative (Negative); Urobilinogen,Cath 0.2 EU/dl (0.2)
--- NOTE | 2017-07-27 06:29 | PC.NURSE ---
PT IS A&OX3. SHE REPORTS FEELING FLUSHED AND WARM UPON ARRIVAL TO THE FLOOR. GENERALIZED EDEMA AND 1+ PITTING EDEMA ON BLE. POSITIVE DEEP TENDON REFLEXES. HER O2 DROPPED TO 86-87% AND WAS PLACED ON 1LPM N/C. SHE IS ON BEDREST. VOIDING PER F/C. URINE IS CLEAR.
--- NOTE | 2017-07-27 06:41 | PC.NURSE ---
PT EDUCATED TO NOTIFY STAFF OF ANY NAUSEA, VOMITING, BURNING AT IV SITE, OR FEELING DROWSY. PT VERBALIZED UNDERSTANDING.
--- NOTE | 2017-07-27 06:55 | PC.NURSE ---
VERIFIED WITH DR. SHELL THAT HE DOES NOT WANT THE 4GRAM BOLUS OF MAG.
--- NOTE | 2017-07-27 07:36 | PC.NURSE ---
REPORT GIVEN TO Juan ROMO W/C
--- NOTE | 2017-07-27 08:42 | HMH.HP ---
*Admission Date: 07/26/17 <Ana Voss 07/27/17 09:01> *Chief complaint: Swelling and SOA <Ana Voss 07/27/17 09:01> *History of present illness: Ms. Syed is a 42yo female who just had a section on 07/17/17 [address] Dr. Steen. She states that ever since she went home, she has had shortness of air, cough, wheezing, and generalized edema but worse in her feet. She then developed a cough and sore throat and began coughing up pink bloody phlegm. She has some generalized burning chest pain from her throat down. She has some mild sore throat. No rhinorrhea at all. She states she is aching all over and is chilling. No fever. She states she had no problems with or delivery. She was admitted and received 1 dose of labetalol 20 mg IV as well as [address] Her CT scan was negative for a pulmonary embolus. Dr. Steen has seen her and was concerned about cardiomyopathy. He wanted to continue with labetalol 200 mg twice daily and start magnesium sulfate as well. He ordered a 4 g bolus and 2 g an hour, however her pump was running at 3g/hr and this was corrected by the nurse this am. <Ana Voss 07/27/17 09:01> [facility] History Medical History: Denies:: Anxiety, Asthma, Cancer, Cardiomyopathy, Congestive Heart Failure, Coronary Artery Disease, Depression, Diabetes Mellitus Type 1, Diabetes Mellitus Type 2, MRSA <Ana Voss 07/27/17 09:01> Laterality Cases: Bilateral: Tonsillectomy <Ana Voss 07/27/17 09:01> Other Surgeries: Yes: , Tubal Ligation (plus reversal) <Ana Voss 07/27/17 09:01> Amputation: No <Ana Voss 07/27/17 09:01> Fractures: No <Ana Voss 07/27/17 09:01> Comment: Tubal ligation, Tubal reversal <Ana Voss 07/27/17 09:01> - *Social History Educational Level: Attended College <Ana Voss 07/27/17 09:01> Smoking Status: Former smoker <ShanikaAna 07/27/17 09:01> # Packs/Day (cigarettes): 1 <MichaelyoungAna 07/27/17 09:01> Alcohol Intake: never <MichaelyoungAna 07/27/17 09:01> Alcohol Intake Frequency:: holidays/special occasions only <MichaelyoungAna 07/27/17 09:01> Substance Use Type: denies use <MichaelyoungAna - 07/27/17 09:01> Occupational Status: employed <MichaelyoungAna 07/27/17 09:01> Housing: house <ShanikaAna 07/27/17 09:01> Household Members: spouse <MichaelyoungAna 07/27/17 09:01> - Psychiatric History Expresses thoughts of harming self/others: None <Ana Voss 07/27/17 09:01> Suicide Plan Description: No Plan <Ana Voss 07/27/17 09:01> Pschychiatric History:: Denies:: Anxiety, Depression <ShanikaAna 07/27/17 09:01> *Family Hx:: Cancer, Heart Attack, Hypertension <ShanikaAna 07/27/17 09:01> Review of Systems - Constitutional Reports body ache(s), Reports chills, Reports headache(s), Reports weakness, Denies fever(s) <ShanikaAna 07/27/17 09:01> - Eyes Denies blurry vision, Denies double vision <[place] 07/27/17 09:01> - ENT Reports sore throat, Denies nasal congestion <[place] 07/27/17 09:01> - *Cardiovascular Reports chest pain, Reports rapid, pounding, or irregular heartbeat <ShanikaAna 07/27/17 09:01> - *Respiratory Reports shortness of breath, Reports coughing up blood, Reports wheezing <[place] 07/27/17 09:01> - *Gastrointestinal Denies abdominal pain, Denies loose stools, Denies nausea, Denies vomiting <Ana Voss 07/27/17 09:01> - *Genitourinary Denies difficulty urinating, Denies painful urination <Ana Voss - 07/27/17 09:01> - *Musculoskeletal Reports body aches <Ana Voss - 07/27/17 09:01> - *Neurologic Reports headache(s), Reports weakness <Ana Voss - 07/27/17 09:01> Meds Home Medications Medication Instructions Recorded Confirmed Type 1 tab PO DAILY 05/15/17 07/26/17 History vitamin,calcium,kjfndaah-pquk-whimz acid tablet <
--- NOTE | 2017-07-27 08:47 | P.HP_ITS ---
*Admission Date: 07/26/17 <Ana Voss 07/27/17 09:01> *Chief complaint: Swelling and SOA <Ana Voss 07/27/17 09:01> *History of present illness: Ms. Syed is a 42yo female who just had a section on 07/17/[address] Steen. She states that ever since she went home, she has had shortness of air, cough, wheezing, and generalized edema but worse in her feet. She then developed a cough and sore throat and began coughing up pink bloody phlegm. She has some generalized burning chest pain from her throat down. She has some mild sore throat. No rhinorrhea at all. She states she is aching all over and is chilling. No fever. She states she had no problems with or delivery. She was admitted and received 1 dose of labetalol 20 mg IV as well as [address] Her CT scan was negative for a pulmonary embolus. Dr. Steen has seen her and was concerned about cardiomyopathy. He wanted to continue with labetalol 200 mg twice daily and start magnesium sulfate as well. He ordered a 4 g bolus and 2 g an hour, however her pump was running at 3g/hr and this was corrected by the nurse this am. <Ana Voss 07/27/17 09:01> [facility] History Medical History: Denies:: Anxiety, Asthma, Cancer, Cardiomyopathy, Congestive Heart Failure, Coronary Artery Disease, Depression, Diabetes Mellitus Type 1, Diabetes Mellitus Type 2, MRSA <Ana Voss 07/27/17 09:01> Laterality Cases: Bilateral: Tonsillectomy <Ana Voss 07/27/17 09:01> Other Surgeries: Yes: , Tubal Ligation (plus reversal) <Ana Voss 07/27/17 09:01> Amputation: No <Ana Voss 07/27/17 09:01> Fractures: No <Ana Voss 07/27/17 09:01> Comment: Tubal ligation, Tubal reversal <Ana Voss 07/27/17 09:01> - *Social History Educational Level: Attended College <Ana Voss 07/27/17 09:01> Smoking Status: Former smoker <ShanikaAna 07/27/17 09:01> # Packs/Day (cigarettes): 1 <MichaelyoungAna 07/27/17 09:01> Alcohol Intake: never <MichaelyoungAna 07/27/17 09:01> Alcohol Intake Frequency:: holidays/special occasions only <MichaelyoungAna 09:01> Substance Use Type: denies use <MichaelyoungAna - 07/27/17 09:01> Occupational Status: employed <MichaelyoungAna 07/27/17 09:01> Housing: house <ShanikaAna 07/27/17 09:01> Household Members: spouse <MichaelyoungAna 07/27/17 09:01> - Psychiatric History Expresses thoughts of harming self/others: None <Ana Voss 07/27/17 09: 01> Suicide Plan Description: No Plan <Ana Voss 07/27/17 09:01> Pschychiatric History:: Denies:: Anxiety, Depression <ShanikaAna 07/27/17 09:01> *Family Hx:: Cancer, Heart Attack, Hypertension <ShanikaAna 07/27/17 09: 01> Review of Systems - Constitutional Reports body ache(s), Reports chills, Reports headache(s), Reports weakness, Denies fever(s) <ShanikaAna 07/27/17 09:01> - Eyes Denies blurry vision, Denies double vision <[place] 07/27/17 09:01> - ENT Reports sore throat, Denies nasal congestion <[place] 07/27/17 09:01> - *Cardiovascular Reports chest pain, Reports rapid, pounding, or irregular heartbeat <Shanika Ana 07/27/17 09:01> - *Respiratory Reports shortness of breath, Reports coughing up blood, Reports wheezing < [place] 07/27/17 09:01> - *Gastrointestinal Denies abdominal pain, Denies loose stools, Denies nausea, Denies vomiting < Ana Voss 07/27/17 09:01> - *Genitourinary Denies difficulty urinating, Denies painful urination <Ana Voss - 09:01> - *Musculoskeletal Reports body aches
[2017-07-27 08:59] LABS: Adenovirus,PCR Not Detected (NotDetected); Bordetella Pertussis Not Detected (NotDetected); Chlamydophila Pneumoniae, PCR Not Detected (NotDetected); Coronavirus 229E Not Detected (NotDetected); Coronavirus NL63 Not Detected (NotDetected); Coronavirus OC43 Not Detected (NotDetected); Coronovirus HKU1,PCR Not Detected (NotDetected); Human Metapneumovirus Not Detected (NotDetected); Influenza A, PCR Not Detected (NotDetected); Influenza AH1, 2009 Not Detected (NotDetected); Influenza AH1, PCR Not Detected (NotDetected); Influenza AH3,PCR Not Detected (NotDetected); Influenza B, PCR Not Detected (NotDetected); Mycoplasma Pneumoniae, PCR Not Detected (NotDected); Parainfluenza 1, PCR Not Detected (NotDetected); Parainfluenza 2, PCR Not Detected (NotDetected); Parainfluenza 3, PCR Not Detected (NotDetected); Parainfluenza 4, PCR Not Detected (NotDetected); Respiratory Syncytial Virus Not Detected (NotDetected); Rhinovirus/Enterovirus Not Detected (NotDetected)
--- NOTE | 2017-07-27 09:10 | PC.NURSE ---
verified dosing of mag on pump with 2 nurses at 0800 to verify correct dosing. verified with sara alex and melquiades daniel rn
--- NOTE | 2017-07-27 10:22 | PC.NURSE ---
spoke with dr. rojas at this time about patient complaints of neck and shoulder pain.
--- NOTE | 2017-07-27 10:22 | HMH.ACPN2 ---
Internal Medicine - PN: Subj *Date: 07/27/17 *Time: 10:22 Interval history: She seems to be doing a little better this morning. She is less short of breath. She says that her hands are less swollen as well as her feet. I saw her about 430 this morning. She has received IV Lasix 40 mg and she has put out 4500 cc of urine since then. Blood pressure is still slightly elevated from 140-170/70-90. She still has a mild headache. She is on magnesium sulfate at 2 g an hour. She is taking labetalol 200 mg twice daily and I am going to increase her dosage to 200 mg 3 times daily. We will also add Lasix 20 mg twice daily. I have a cardiac echo scheduled for today as well. We will repeat her chest x-ray tomorrow. I spoke with our radiologist and when he looked at the CT and chest x-ray he was not sure whether she had some sort of hemorrhagic occurrence within the lungs. He had coughed up a small amount of blood yesterday. Exam Vital signs and Labs for Last 24 Hours: Temp Pulse Resp BP Pulse Ox 98.0 F 70 18 169/79 94 L 07/27/17 08:00 07/27/17 08:00 07/27/17 06:21 07/27/17 06:33 07/27/17 08:00 Laboratory Results - last 24 hr 07/27/17 05:45: Magnesium 2.1 07/27/17 05:50: Urine Color Yellow, Urine Appearance Clear, Urine pH 6.0, Ur Specific [place] 1.010, Urine Protein Negative, Urine Glucose (UA) Negative, Urine Ketones Negative, Urine Blood Negative, Urine Nitrate Negative, Urine Bilirubin Negative, Urine Urobilinogen 0.2, Ur Leukocyte Esterase Negative 07/27/17 08:15: Chlamy pneumoniae PCR Not detected, Adenovirus (PCR) Not detected, B.parapertussis DNA PCR Not detected, Coronavirus OC43 (PCR) Not detected, Coronavirus HKU1 (PCR) Not detected, Coronavirus 229E (PCR) Not detected, Coronavirus NL63 (PCR) Not detected, Human Metapneumovir PCR Not detected, Influenza A (H1) PCR Not detected, Influ A (H1N1/09) PCR Not detected, Influenza A (H3) PCR Not detected, Influenza Type A (PCR) Not detected, Influenza Type B (PCR) Not detected, M. pneumoniae (PCR) Not detected, Parainfluenza 1 (PCR) Not detected, Parainfluenza 2 (PCR) Not detected, Parainfluenza 3 (PCR) Not detected, Parainfluenza 4 (PCR) Not detected, RSV (PCR) Not detected, Entero/Rhino (PCR) Not detected I & O for Last 24 hours: Intake & Output 07/24/17 07/25/17 07/26/17 07/27/17 11:59 11:59 11:59 11:59 Output Total 4700 / 4700 Balance -4700 / -4700 - Constitutional no acute distress - *Routine HEENT Exam Head: Present: normocephalic - *Routine Respiratory Exam Comments: She has normal breath sounds bilaterally. There are no crackles or wheezes. - *Routine Abdominal Exam Present: soft Comments: Her incision is clean and dry. The Steri-Strips are still on the incision. Assessment and Plan (1) Dyspnea Current visit: Yes Status: Acute Qualifiers: Dyspnea type: shortness of breath Qualified Code(s): R06.02 - Shortness of breath; R06.00 - Dyspnea, unspecified; R06.01 - Orthopnea Category: Medical Code(s): R06.00 - Dyspnea, unspecified (2) Hypertension Current visit: Yes Status: Acute Qualifiers: Hypertension type: unspecified Qualified Code(s): I10 - Essential (primary) hypertension Category: Medical Code(s): I10 - Essential (primary) hypertension (3) Peripheral edema Current visit: Yes Status: Acute Category: Medical Code(s): R60.9 - Edema, unspecified (4) Pleural effusion Current visit: Yes Status: Acute Category: Medical Code(s): J90 - Pleural effusion, not elsewhere classified (5) Anemia associated with acute blood loss Problem details: mild anemia 11.7, asymptomatic. continue PNV with feso4 Current visit: No Status: Acute Category: Medical Code(s): D62 - Acute posthemorrhagic anemia (6) Breech presentation at Problem details: primary cs for delivery Current visit: No Status: Acute Category: Medical Code(s): O32.1XX0 - Maternal care for edilma
--- NOTE | 2017-07-27 10:26 | P.PN_ITS ---
Internal Medicine - PN: Subj *Date: 07/27/17 *Time: 10:22 Interval history: She seems to be doing a little better this morning. She is less short of breath. She says that her hands are less swollen as well as her feet. I saw her about 430 this morning. She has received IV Lasix 40 mg and she has put out 4500 cc of urine since then. Blood pressure is still slightly elevated from 140-170/70-90. She still has a mild headache. She is on magnesium sulfate at 2 g an hour. She is taking labetalol 200 mg twice daily and I am going to increase her dosage to 200 mg 3 times daily. We will also add Lasix 20 mg twice daily. I have a cardiac echo scheduled for today as well. We will repeat her chest x- ray tomorrow. I spoke with our radiologist and when he looked at the CT and chest x-ray he was not sure whether she had some sort of hemorrhagic occurrence within the lungs. He had coughed up a small amount of blood yesterday. Exam Vital signs and Labs for Last 24 Hours: Temp Pulse Resp BP Pulse Ox 98.0 F 70 18 169/79 94 L 07/27/17 08:00 07/27/17 08:00 07/27/17 06:21 07/27/17 06:33 07/27/17 08:00 Laboratory Results - last 24 hr 07/27/17 05:45: Magnesium 2.1 07/27/17 05:50: Urine Color Yellow, Urine Appearance Clear, Urine pH 6.0, Ur Specific [place] 1.010, Urine Protein Negative, Urine Glucose (UA) Negative, Urine Ketones Negative, Urine Blood Negative, Urine Nitrate Negative, Urine Bilirubin Negative, Urine Urobilinogen 0.2, Ur Leukocyte Esterase Negative 07/27/17 08:15: Chlamy pneumoniae PCR Not detected, Adenovirus (PCR) Not detected, B.parapertussis DNA PCR Not detected, Coronavirus OC43 (PCR) Not detected, Coronavirus HKU1 (PCR) Not detected, Coronavirus 229E (PCR) Not detected, Coronavirus NL63 (PCR) Not detected, Human Metapneumovir PCR Not detected, Influenza A (H1) PCR Not detected, Influ A (H1N1/09) PCR Not detected , Influenza A (H3) PCR Not detected, Influenza Type A (PCR) Not detected, Influenza Type B (PCR) Not detected, M. pneumoniae (PCR) Not detected, Parainfluenza 1 (PCR) Not detected, Parainfluenza 2 (PCR) Not detected, Parainfluenza 3 (PCR) Not detected, Parainfluenza 4 (PCR) Not detected, RSV (PCR ) Not detected, Entero/Rhino (PCR) Not detected I & O for Last 24 hours: Intake & Output 07/24/17 07/25/17 07/26/17 07/27/17 11:59 11:59 11:59 11:59 Output Total 4700 / 4700 Balance -4700 / -4700 - Constitutional no acute distress - *Routine HEENT Exam Head: Present: normocephalic - *Routine Respiratory Exam Comments: She has normal breath sounds bilaterally. There are no crackles or wheezes. - *Routine Abdominal Exam Present: soft Comments: Her incision is clean and dry. The Steri-Strips are still on the incision. Assessment and Plan (1) Dyspnea Current visit: Yes Status: Acute Qualifiers: Dyspnea type: shortness of breath Qualified Code(s): R06.02 - Shortness of breath; R06.00 - Dyspnea, unspecified; R06.01 - Orthopnea Category: Medical Code(s): R06.00 - Dyspnea, unspecified (2) Hypertension Current visit: Yes Status: Acute Qualifiers: Hypertension type: unspecified Qualified Code(s): I10 - Essential (primary ) hypertension Category: Medical Code(s): I10 - Essential (primary) hypertension (3) Peripheral edema Current visit: Yes Status: Acute Category: Medical Code(s): R60.9 - Edema , unspecified (4) Pleural effusion Current visit: Yes Status: Acute Category: Medical Code(s
[2017-07-27 11:16] LABS: Bacteria,Urine/Cath TRACE /lpf
--- NOTE | 2017-07-27 13:07 | PC.NURSE ---
AT THIS TIME PATIENT SITTING UP IN BED, JUST FINISHED LUNCH. SOME SLEEPINESS NOTED, BUT EASILY AROUSABLE AND SPEAKING WITH STAFF. DID STATE THAT MEDS HAS HELPED EARLIER HEADACHE; HOWEVER, HEADACHE STARTING TO RETURN AT THIS TIME. OXYCODONE IS AVAILABLE, PATIENT STATED THAT HEADACHE WAS NOT BAD ENOUGH TO REQUIRE THAT AT THIS TIME, AND WOULD MAKE US AWARE IF IT INCREASES AND SHE DOES NEED MEDICATION. MD IS AWARE OF PATIENT HEADACHES SHE HAS HAD
--- NOTE | 2017-07-27 13:45 | P.CONPHA_ITS ---
[facility] Pharmacy VTE Monitoring - Patient Demographics Admission date: 07/27/17 Report Date: 07/27/17 Time: 13:45 Allergies/Adverse Reactions: Patient Allergies Penicillins [PENICILLINS] Allergy (Intermediate, Verified 07/15/17 14:57) I-RASH Height: 1.7 m Weight: 98.883 kg Patient Problems: Current Active Problems Pleural effusion (Acute) Hypertension (Acute) Peripheral edema (Acute) Hemoptysis (Acute) Dyspnea (Acute) - VTE Risk Labs: VTE Related Lab Results Hgb 10.3 g/dL (12.2-16.2) L 07/26/17 22:40 Hct 30.5 % (37.0-47.0) L 07/26/17 22:40 Plt Count 178 K/mm3 (142-424) 07/26/17 22:40 BUN 22 mg/dL (7-18) H 07/26/17 22:40 Creatinine 0.95 mg/dL (0.55-1.02) 07/26/17 22:40 Estimated Creat Clear 122 mL/min (0-300) 07/26/17 22:40 VTE Score: 3 VTE Risk Level: Low Risk - Prophylaxis Types of VTE Prophylaxis: TEDS Knee High Location of Applied Device: Bilateral Lower Extremeties - VTE Diagnosis Confirmed Comment: GREGORY ANSARI ORDERED
[2017-07-27 18:39] LABS: Free Thyroxine Index 4.5 ug/dL (5.93-13.13); T4 (Thyroxine) 13.5 ug/dl (4.7-13.3); Thyroid Stimulating Hormone 0.85 uIU/ml (0.358-3.740); Triiodothryronine (T3) Uptake 33 % (31-39)
--- NOTE | 2017-07-27 19:59 | PC.NURSE ---
PATIENT RELEXES HAVE BEEN CHECKED THOROUGH OUT SHIFT WITH NO CHANGE AT THIS TIME. PATIENT STILL COMPLAINING OF NECK SHOULDER AND HEAD PAIN. SWELLING IN LEGS HAVE DECREASED. PATIENT STATES SHE FEELS MUCH BETTER FROM THE DECREASE IN SWELLING. STILL DROWSY AT TIMES. MAG DRIP VERIFIED WITH ANOTHER NURSE DURING PROGRAMMING AND BAG CHANGES. VSS WILL CONTINUE TO MONITOR.
[2017-07-28] VITALS (26 sets, daily range): BP systolic 109–166; BP diastolic 54–101; PULSE 60–88; RESP 12–20; TEMP 36.3–36.6; O2SAT 88–94
--- NOTE | 2017-07-28 03:06 | PC.NURSE ---
PT IS A&OX3. SHE HAS RECEIVED PRN PAIN MEDICATION FOR HEADACHE. SHE IS VOIDING PER F/C. URINE IS YELLOW, CLEAR. 2+ DEEP TENDON REFLEXES. CAPILLARY REFILL <3. SHE HAS SLEPT PERIODICALLY T/O THE SHIFT. AWAKENS EASILY. INFORMED ABOUT PT COMPLAINTS OF PAIN IN THE BACK OF HER LEGS AND HE PLACED A N/O FOR LOVENOX. NSR ON TELEMERY.
[2017-07-28 05:11] LABS: Basophils % 0.4 % (0.1-2.0); Eosinophils # 0.2 K/mm3 (0.0-0.4); Hematocrit 31.8 % (37.0-47.0); Hemoglobin 10.3 g/dL (12.2-16.2); Lymphocytes % 17.7 K/mm3 (10-50); Mean Corpuscular HGB Conc 32.4 g/dL (31.8-35.4); Mean Corpuscular Hemoglobin 30.3 pg (27.0-31.2); Mean Corpuscular Volume 93.7 fl (81-99); Mean Platelet Volume 8.2 fl (7.4-10.4); Monocytes # 0.5 K/mm3 (0.1-1.0); Monocytes % 8.9 % (1.7-9.3); Platelet Count 190 K/mm3 (142-424); Red Cell Distribution Width 13.4 % (11.5-17.5); White Blood Count 5.8 K/mm3 (4.8-10.8)
[2017-07-28 05:38] LABS: Anion Gap 14.5 mEq/L (5-15); Blood Urea Nitrogen 15 mg/dL (7-18); Carbon Dioxide 25 mmol/L (21.0-32.0); Chloride 105 mmol/L (98-107); Creatinine Clearance Estimated 148 mL/min (0-300); Creatinine,Serum 0.76 mg/dL (0.55-1.02); Estimated Glomerular Filt Rate 83 ml/min (>60); GFR (African American) 101 ML/MIN (>60); Glucose 106 mg/dL (74-106); Magnesium 6.4 mg/dL (1.4-2.2); Potassium 3.5 mmoL/L (3.5-5.1); Sodium 141 mmol/L (136-145)
--- NOTE | 2017-07-28 08:28 | PC.NURSE ---
called dr. rojas to let him know that patient still complaining of severe migraine that continues from day before. mag level currently 6.4. still drowsy. bp is 160s-170s/90-100s. stated to go ahead and give the labetolol now and see if that helps with bp
--- NOTE | 2017-07-28 09:12 | HMH.ACPN2 ---
Internal Medicine - PN: Subj *Date: 07/28/17 *Time: 09:12 Interval history: Her blood pressure is somewhat elevated again this morning. It is 150/102. It has been as high as 160/105. She does complain of a mild headache. She is on magnesium sulfate 2 g an hour. She is taking labetalol 200 mg every 8 hours. I am planning to add nifedipine 10 mg every 6 hours this morning as well. She has diuresed a significant amount of fluid over the last 24 hours. She continues with Lasix 20 mg twice daily. Exam Vital signs and Labs for Last 24 Hours: Temp Pulse Resp BP Pulse Ox 97.7 F 70 18 166/101 94 L 07/28/17 08:00 07/28/17 08:10 07/28/17 08:00 07/28/17 08:00 07/28/17 08:10 Laboratory Results - last 24 hr 07/27/17 05:45: TSH 0.85, Free T4 Index 4.5 L, Thyroxine (T4) 13.5 H, T3 Uptake 33 07/27/17 05:50: Urine RBC None, Urine WBC 3-5, Ur Squamous Epith Cells None, Urine Bacteria Trace 07/27/17 08:15: Chlamy pneumoniae PCR Not detected, Adenovirus (PCR) Not detected, B.parapertussis DNA PCR Not detected, Coronavirus OC43 (PCR) Not detected, Coronavirus HKU1 (PCR) Not detected, Coronavirus 229E (PCR) Not detected, Coronavirus NL63 (PCR) Not detected, Human Metapneumovir PCR Not detected, Influenza A (H1) PCR Not detected, Influ A (H1N1/09) PCR Not detected, Influenza A (H3) PCR Not detected, Influenza Type A (PCR) Not detected, Influenza Type B (PCR) Not detected, M. pneumoniae (PCR) Not detected, Parainfluenza 1 (PCR) Not detected, Parainfluenza 2 (PCR) Not detected, Parainfluenza 3 (PCR) Not detected, Parainfluenza 4 (PCR) Not detected, RSV (PCR) Not detected, Entero/Rhino (PCR) Not detected 07/28/17 04:55: Sodium 141, Potassium 3.5, Chloride 105, Carbon Dioxide 25, Anion Gap 14.5, BUN 15 D, Creatinine 0.76, Estimated Creat Clear 148, Estimated GFR 83, Est GFR ( Amer) 101 D, Glucose 106, Magnesium 6.4 H D 07/28/17 04:55: WBC 5.8, RBC 3.40 L, Hgb 10.3 L, Hct 31.8 L, MCV 93.7, MCH 30.3, MCHC 32.4, RDW 13.4, Plt Count 190, MPV 8.2, Neut % (Auto) 69.0, Lymph % (Auto) 17.7, [place] % (Auto) 8.9, Eos % (Auto) 4.0, Baso % (Auto) 0.4, Neut # (Auto) 4.0, Lymph # (Auto) 1.0, [place] # (Auto) 0.5, Eos # (Auto) 0.2, Baso # (Auto) 0.0 I & O for Last 24 hours: Intake & Output 07/25/17 07/26/17 07/27/17 07/28/17 11:59 11:59 11:59 11:59 Intake Total 3072 / 3072 Output Total 4700 / 4700 1550 / 1550 Balance -4700 / -4700 1522 / 1522 Weight 215 lb - Constitutional no acute distress - *Routine HEENT Exam Head: Present: normocephalic - *Routine Respiratory Exam Comments: Air entry bilaterally. Assessment and Plan (1) Dyspnea Current visit: Yes Status: Acute Qualifiers: Dyspnea type: shortness of breath Qualified Code(s): R06.02 - Shortness of breath; R06.00 - Dyspnea, unspecified; R06.01 - Orthopnea Category: Medical Code(s): R06.00 - Dyspnea, unspecified (2) Hypertension Current visit: Yes Status: Acute Qualifiers: Hypertension type: unspecified Qualified Code(s): I10 - Essential (primary) hypertension Category: Medical Code(s): I10 - Essential (primary) hypertension (3) Peripheral edema Current visit: Yes Status: Acute Category: Medical Code(s): R60.9 - Edema, unspecified (4) Pleural effusion Current visit: Yes Status: Acute Category: Medical Code(s): J90 - Pleural effusion, not elsewhere classified (5) Anemia associated with acute blood loss Problem details: mild anemia 11.7, asymptomatic. continue PNV with feso4 Current visit: No Status: Acute Category: Medical Code(s): D62 - Acute posthemorrhagic anemia (6) Breech presentation at Problem details: primary cs for delivery Current visit: No Status: Acute Category: Medical Code(s): O32.1XX0 - Maternal care for breech presentation, not applicable or unspecified (7) Delivered by section Problem details: continue routine postop care. Current visit: No Status: Acut
--- NOTE | 2017-07-28 09:15 | P.PN_ITS ---
Internal Medicine - PN: Subj *Date: 07/28/17 *Time: 09:12 Interval history: Her blood pressure is somewhat elevated again this morning. It is 150/102. It has been as high as 160/105. She does complain of a mild headache. She is on magnesium sulfate 2 g an hour. She is taking labetalol 200 mg every 8 hours. I am planning to add nifedipine 10 mg every 6 hours this morning as well. She has diuresed a significant amount of fluid over the last 24 hours. She continues with Lasix 20 mg twice daily. Exam Vital signs and Labs for Last 24 Hours: Temp Pulse Resp BP Pulse Ox 97.7 F 70 18 166/101 94 L 07/28/17 08:00 07/28/17 08:10 07/28/17 08:00 07/28/17 08:00 07/28/17 08:10 Laboratory Results - last 24 hr 07/27/17 05:45: TSH 0.85, Free T4 Index 4.5 L, Thyroxine (T4) 13.5 H, T3 Uptake 33 07/27/17 05:50: Urine RBC None, Urine WBC 3-5, Ur Squamous Epith Cells None, Urine Bacteria Trace 07/27/17 08:15: Chlamy pneumoniae PCR Not detected, Adenovirus (PCR) Not detected, B.parapertussis DNA PCR Not detected, Coronavirus OC43 (PCR) Not detected, Coronavirus HKU1 (PCR) Not detected, Coronavirus 229E (PCR) Not detected, Coronavirus NL63 (PCR) Not detected, Human Metapneumovir PCR Not detected, Influenza A (H1) PCR Not detected, Influ A (H1N1/09) PCR Not detected , Influenza A (H3) PCR Not detected, Influenza Type A (PCR) Not detected, Influenza Type B (PCR) Not detected, M. pneumoniae (PCR) Not detected, Parainfluenza 1 (PCR) Not detected, Parainfluenza 2 (PCR) Not detected, Parainfluenza 3 (PCR) Not detected, Parainfluenza 4 (PCR) Not detected, RSV (PCR ) Not detected, Entero/Rhino (PCR) Not detected 07/28/17 04:55: Sodium 141, Potassium 3.5, Chloride 105, Carbon Dioxide 25, Anion Gap 14.5, BUN 15 D, Creatinine 0.76, Estimated Creat Clear 148, Estimated GFR 83, Est GFR ( Amer) 101 D, Glucose 106, Magnesium 6.4 H D 07/28/17 04:55: WBC 5.8, RBC 3.40 L, Hgb 10.3 L, Hct 31.8 L, MCV 93.7, MCH 30.3 , MCHC 32.4, RDW 13.4, Plt Count 190, MPV 8.2, Neut % (Auto) 69.0, Lymph % (Auto ) 17.7, [place] % (Auto) 8.9, Eos % (Auto) 4.0, Baso % (Auto) 0.4, Neut # (Auto) 4.0, Lymph # (Auto) 1.0, [place] # (Auto) 0.5, Eos # (Auto) 0.2, Baso # (Auto) 0.0 I & O for Last 24 hours: Intake & Output 07/25/17 07/26/17 07/27/17 07/28/17 11:59 11:59 11:59 11:59 Intake Total 3072 / 3072 Output Total 4700 / 4700 1550 / 1550 Balance -4700 / -4700 1522 / 1522 Weight 215 lb - Constitutional no acute distress - *Routine HEENT Exam Head: Present: normocephalic - *Routine Respiratory Exam Comments: Air entry bilaterally. Assessment and Plan (1) Dyspnea Current visit: Yes Status: Acute Qualifiers: Dyspnea type: shortness of breath Qualified Code(s): R06.02 - Shortness of breath; R06.00 - Dyspnea, unspecified; R06.01 - Orthopnea Category: Medical Code(s): R06.00 - Dyspnea, unspecified (2) Hypertension Current visit: Yes Status: Acute Qualifiers: Hypertension type: unspecified Qualified Code(s): I10 - Essential (primary ) hypertension Category: Medical Code(s): I10 - Essential (primary) hypertension (3) Peripheral edema Current visit: Yes Status: Acute Category: Medical Code(s): R60.9 - Edema , unspecified (4) Pleural effusion Current visit: Yes Status: Acute Category: Medical Code(s): J90 - Pleural effusion, not elsewhere classified (5) Anemia associated with acute blood loss Problem details: mild anemia 11.7, asymptomatic. continue PNV wit
--- NOTE | 2017-07-28 10:16 | XR_ITS ---
XR chest 2V COMPARISON: PA and lateral chest 07/26/2017 HISTORY: Shortness of breath recent TECHNIQUE: The a and lateral chest FINDINGS: There is been definite interval improvement in the diffuse vascular congestion seen on the previous film of 26 July. Resolving or resolved congestive failure is a possibility but more likely this was due to fluid overload which has been addressed. There is been interval decrease in size of the bilateral pleural effusions with only small amount of fluid remaining at both costophrenic angles. Cardiac size is borderline. A minimal opacity remains in the right cardiophrenic angle representing a pneumonic infiltrate. IMPRESSION: Overall improvement in appearance of the chest with essentially resolved vascular congestion and decrease in the pleural effusions, minimal right lower lobe pneumonic infiltrate remaining
--- NOTE | 2017-07-28 15:00 | HMH.ACPN2 ---
Internal Medicine - PN: Subj *Date: 07/28/17 *Time: 15:00 Interval history: The patient was seen this AM. She is feeling much better. She still c/o headache and BP remains elevated. Additional treatment discussed with Dr. Steen. He has ordered Nifedipine 10mg tid. Exam Vital signs and Labs for Last 24 Hours: Temp Pulse Resp BP Pulse Ox 97.9 F 72 16 116/54 90 L 07/28/17 11:54 07/28/17 11:54 07/28/17 11:54 07/28/17 11:54 07/28/17 11:54 Laboratory Results - last 24 hr 07/27/17 05:45: TSH 0.85, Free T4 Index 4.5 L, Thyroxine (T4) 13.5 H, T3 Uptake 33 07/28/17 04:55: Sodium 141, Potassium 3.5, Chloride 105, Carbon Dioxide 25, Anion Gap 14.5, BUN 15 D, Creatinine 0.76, Estimated Creat Clear 148, Estimated GFR 83, Est GFR ( Amer) 101 D, Glucose 106, Magnesium 6.4 H D 07/28/17 04:55: WBC 5.8, RBC 3.40 L, Hgb 10.3 L, Hct 31.8 L, MCV 93.7, MCH 30.3, MCHC 32.4, RDW 13.4, Plt Count 190, MPV 8.2, Neut % (Auto) 69.0, Lymph % (Auto) 17.7, [place] % (Auto) 8.9, Eos % (Auto) 4.0, Baso % (Auto) 0.4, Neut # (Auto) 4.0, Lymph # (Auto) 1.0, [place] # (Auto) 0.5, Eos # (Auto) 0.2, Baso # (Auto) 0.0 Note 3.5 potassium, and note normal anion gap. CXR shows much improvement. Note weight. I & O for Last 24 hours: Intake & Output 07/26/17 07/27/17 07/28/17 07/29/17 11:59 11:59 11:59 11:59 Intake Total 3072 / 3072 240 / 240 Output Total 4700 / 4700 1550 / 1550 Balance -4700 / -4700 1522 / 1522 240 / 240 Weight 215 lb - *Routine HEENT Exam Eye: Present: PERRL ENT: Present: mucous membranes moist - *Routine Neck Exam Present: supple - *Routine Respiratory Exam Present: CTA bilaterally (only few rales at bases) - *Routine Cardiovascular Exam Present: RRR Comments: hypertension noted - *Routine Extremities Exam Comments: trace edema Assessment and Plan (1) Dyspnea Current visit: Yes Status: Acute Qualifiers: Dyspnea type: shortness of breath Qualified Code(s): R06.02 - Shortness of breath; R06.00 - Dyspnea, unspecified; R06.01 - Orthopnea Category: Medical Code(s): R06.00 - Dyspnea, unspecified (2) Hypertension Current visit: Yes Status: Acute Qualifiers: Hypertension type: unspecified Qualified Code(s): I10 - Essential (primary) hypertension Category: Medical Code(s): I10 - Essential (primary) hypertension (3) Peripheral edema Current visit: Yes Status: Acute Category: Medical Code(s): R60.9 - Edema, unspecified (4) Pleural effusion Current visit: Yes Status: Acute Category: Medical Code(s): J90 - Pleural effusion, not elsewhere classified (5) Anemia associated with acute blood loss Problem details: mild anemia 11.7, asymptomatic. continue PNV with feso4 Current visit: No Status: Acute Category: Medical Code(s): D62 - Acute posthemorrhagic anemia (6) Breech presentation at Problem details: primary cs for delivery Current visit: No Status: Acute Category: Medical Code(s): O32.1XX0 - Maternal care for breech presentation, not applicable or unspecified (7) Delivered by section Problem details: continue routine postop care. Current visit: No Status: Acute Category: Medical Code(s): Z38.01 - Single liveborn infant, delivered by - Assessment and plan all Dx Assessment and Plan for all problems:: Nifedipine added. Continue Lasix and Labetalol.
--- NOTE | 2017-07-28 15:03 | P.PN_ITS ---
Internal Medicine - PN: Subj *Date: 07/28/17 *Time: 15:00 Interval history: The patient was seen this AM. She is feeling much better. She still c/o headache and BP remains elevated. Additional treatment discussed with Dr. Steen. He has ordered Nifedipine 10mg tid. Exam Vital signs and Labs for Last 24 Hours: Temp Pulse Resp BP Pulse Ox 97.9 F 72 16 116/54 90 L 07/28/17 11:54 07/28/17 11:54 07/28/17 11:54 07/28/17 11:54 07/28/17 11:54 Laboratory Results - last 24 hr 07/27/17 05:45: TSH 0.85, Free T4 Index 4.5 L, Thyroxine (T4) 13.5 H, T3 Uptake 33 07/28/17 04:55: Sodium 141, Potassium 3.5, Chloride 105, Carbon Dioxide 25, Anion Gap 14.5, BUN 15 D, Creatinine 0.76, Estimated Creat Clear 148, Estimated GFR 83, Est GFR ( Amer) 101 D, Glucose 106, Magnesium 6.4 H D 07/28/17 04:55: WBC 5.8, RBC 3.40 L, Hgb 10.3 L, Hct 31.8 L, MCV 93.7, MCH 30.3 , MCHC 32.4, RDW 13.4, Plt Count 190, MPV 8.2, Neut % (Auto) 69.0, Lymph % (Auto ) 17.7, Andrew % (Auto) 8.9, Eos % (Auto) 4.0, Baso % (Auto) 0.4, Neut # (Auto) 4.0, Lymph # (Auto) 1.0, Andrew # (Auto) 0.5, Eos # (Auto) 0.2, Baso # (Auto) 0.0 Note 3.5 potassium, and note normal anion gap. CXR shows much improvement. Note weight. I & O for Last 24 hours: Intake & Output 07/26/17 07/27/17 07/28/17 07/29/17 11:59 11:59 11:59 11:59 Intake Total 3072 / 3072 240 / 240 Output Total 4700 / 4700 1550 / 1550 Balance -4700 / -4700 1522 / 1522 240 / 240 Weight 215 lb - *Routine HEENT Exam Eye: Present: PERRL ENT: Present: mucous membranes moist - *Routine Neck Exam Present: supple - *Routine Respiratory Exam Present: CTA bilaterally (only few rales at bases) - *Routine Cardiovascular Exam Present: RRR Comments: hypertension noted - *Routine Extremities Exam Comments: trace edema Assessment and Plan (1) Dyspnea Current visit: Yes Status: Acute Qualifiers: Dyspnea type: shortness of breath Qualified Code(s): R06.02 - Shortness of breath; R06.00 - Dyspnea, unspecified; R06.01 - Orthopnea Category: Medical Code(s): R06.00 - Dyspnea, unspecified (2) Hypertension Current visit: Yes Status: Acute Qualifiers: Hypertension type: unspecified Qualified Code(s): I10 - Essential (primary ) hypertension Category: Medical Code(s): I10 - Essential (primary) hypertension (3) Peripheral edema Current visit: Yes Status: Acute Category: Medical Code(s): R60.9 - Edema , unspecified (4) Pleural effusion Current visit: Yes Status: Acute Category: Medical Code(s): J90 - Pleural effusion, not elsewhere classified (5) Anemia associated with acute blood loss Problem details: mild anemia 11.7, asymptomatic. continue PNV with feso4 Current visit: No Status: Acute Category: Medical Code(s): D62 - Acute posthemorrhagic anemia (6) Breech presentation at Problem details: primary cs for delivery Current visit: No Status: Acute Category: Medical Code(s): O32.1XX0 - Maternal care for breech presentation, not applicable or unspecified (7) Delivered by section Problem details: continue routine postop care. Current visit: No Status: Acute Category: Medical Code(s): Z38.01 - Single liveborn infant, delivered by - Assessment and plan all Dx Assessment and Plan for all problems:: Nifedipine added. Continue Lasix and Labetalol.
[2017-07-28 18:51] LABS: Microalbumin, Urine 9.3 ug/mL (Not Estab.)
--- NOTE | 2017-07-28 18:54 | PC.NURSE ---
PATIENT HAS HAD A GOOD SHIFT. PATIETN REFLEXES ARE STILL INTACT AND WITHIN NORMAL LIMITS. SINCE HEADACHE HAS GONE AWAY PATIENT HAS BEEN MORE AWAKE, AND BP HAS BEEN LOWER. PATIENT DOES STATE AT TIMES SHE HAS BEEN FEELING A LITTLE LOOPY . LET PATIENT KNOW WE WOULD CONTINUE TO MONITOR. THIS AND HER FOR ANY OTHER SYMPTOMS. DID VERIFY WITH DR. SHELL TO CONTINUE MAG DRIP AND HE STATED TO CONTINUE IT AND THAT HE WOULD PROBABLY STOP IT IN MORNING LONG BP WAS STABILIZED . HAS HAD GREAT URINE OUTPUT THIS SHIFT. VSS WILL CONTINUE TO MONITOR.
[2017-07-29] VITALS (13 sets, daily range): BP systolic 103–130; BP diastolic 53–97; PULSE 64–85; RESP 14–18; TEMP 36.4–37.1; O2SAT 87–95
--- NOTE | 2017-07-29 03:13 | PC.NURSE ---
PT IS A&OX3. SHE HAS BEEN RESTING MOST OF THE SHIFT. AWAKENS EASILY. NSR ON TELEMETRY. SHE IS WEARING O2 @ 2LPM N/C. F/C PATENT AND DRAINING YELLOW, CLEAR URINE. REPORTS THAT HEADACHE IS BETTER TODAY. POSITIVE DEEP TENDON REFLEXES.
--- NOTE | 2017-07-29 09:03 | HMH.ACPN2 ---
Internal Medicine - PN: Subj *Date: 07/29/17 *Time: 09:03 Interval history: She seems to be doing a lot better this morning. Her headache is completely gone. Her blood pressure has now normalized. She continues to put out adequate urine. She did have some shortness of breath overnight. Her chest x-ray yesterday morning showed that she had improvement in the heart failure picture. There was still a small amount of consolidation in the lower right lung possibly consistent with pneumonia. She is receiving ceftriaxone for her pneumonia. Is afebrile. Exam Vital signs and Labs for Last 24 Hours: Temp Pulse Resp BP Pulse Ox 97.6 F 78 18 125/67 92 L 07/29/17 07:47 07/29/17 07:47 07/29/17 07:47 07/29/17 07:47 07/29/17 07:47 Laboratory Results - last 24 hr 07/27/17 05:50: Urine Microalbumin 9.3 07/29/17 05:00: Magnesium 7.0 H I & O for Last 24 hours: Intake & Output 07/26/17 07/27/17 07/28/17 07/29/17 11:59 11:59 11:59 11:59 Intake Total 3072 / 3072 3877 / 3877 Output Total 4700 / 4700 1550 / 1550 5650 / 5650 Balance -4700 / -4700 1522 / 1522 -1773 / -1773 Weight 215 lb 210 lb - Constitutional no acute distress - *Routine Respiratory Exam Comments: She has good air entry bilaterally. There is no respiratory distress. She is receiving 1 L of oxygen per minute and her sats are 95%. Assessment and Plan (1) Dyspnea Current visit: Yes Status: Acute Qualifiers: Dyspnea type: shortness of breath Qualified Code(s): R06.02 - Shortness of breath; R06.00 - Dyspnea, unspecified; R06.01 - Orthopnea Category: Medical Code(s): R06.00 - Dyspnea, unspecified (2) Hypertension Current visit: Yes Status: Acute Qualifiers: Hypertension type: unspecified Qualified Code(s): I10 - Essential (primary) hypertension Category: Medical Code(s): I10 - Essential (primary) hypertension (3) Peripheral edema Current visit: Yes Status: Acute Category: Medical Code(s): R60.9 - Edema, unspecified (4) Pleural effusion Current visit: Yes Status: Acute Category: Medical Code(s): J90 - Pleural effusion, not elsewhere classified (5) Anemia associated with acute blood loss Problem details: mild anemia 11.7, asymptomatic. continue PNV with feso4 Current visit: No Status: Acute Category: Medical Code(s): D62 - Acute posthemorrhagic anemia (6) Breech presentation at Problem details: primary cs for delivery Current visit: No Status: Acute Category: Medical Code(s): O32.1XX0 - Maternal care for breech presentation, not applicable or unspecified (7) Delivered by section Problem details: continue routine postop care. Current visit: No Status: Acute Category: Medical Code(s): Z38.01 - Single liveborn infant, delivered by - Assessment and plan all Dx Assessment and Plan for all problems:: She continues to do very well. Her blood pressure has normalized. We will stop her magnesium sulfate today. We will discontinue her Pulido catheter. I will reduce the amount of Lasix to 20 mg daily down from 20 mg twice daily. We will continue with her labetalol and nifedipine. She had a cardiac echocardiogram this morning and we will await the results of this. I believe that she could be transferred to a regular bed from the stepdown unit if beds are available.
--- NOTE | 2017-07-29 09:29 | P.PN_ITS ---
Internal Medicine - PN: Subj *Date: 07/29/17 *Time: 09:25 Interval history: She is feeling better today. She does not have a headache. Blood pressure has normalized. She has responded well to the addition of nifedipine. Gutierrez would like to decrease the Lasix to once a day. I concur with this. We will saline lock her IV. She still has a Pulido catheter in place and this will be discontinued. Exam Vital signs and Labs for Last 24 Hours: Temp Pulse Resp BP Pulse Ox 97.6 F 78 18 125/67 92 L 07/29/17 07:47 07/29/17 07:47 07/29/17 07:47 07/29/17 07:47 07/29/17 07:47 Laboratory Results - last 24 hr 07/27/17 05:50: Urine Microalbumin 9.3 07/29/17 05:00: Magnesium 7.0 H I & O for Last 24 hours: Intake & Output 07/26/17 07/27/17 07/28/17 07/29/17 11:59 11:59 11:59 11:59 Intake Total 3072 / 3072 3997 / 3997 Output Total 4700 / 4700 1550 / 1550 6100 / 6100 Balance -4700 / -4700 1522 / 1522 -2103 / -2103 Weight 215 lb 210 lb - Constitutional no acute distress - *Routine Respiratory Exam Comments: A few rales are heard in the left base otherwise the lungs are clear. - *Routine Cardiovascular Exam Present: RRR - *Routine Extremities Exam Comments: GREGORY stockings are in place. She seems to have no significant edema. - *Routine Neurological Exam Present: alert, oriented X3 (No focal deficit) Assessment and Plan (1) Dyspnea Current visit: Yes Status: Acute Qualifiers: Dyspnea type: shortness of breath Qualified Code(s): R06.02 - Shortness of breath; R06.00 - Dyspnea, unspecified; R06.01 - Orthopnea Category: Medical Code(s): R06.00 - Dyspnea, unspecified (2) Hypertension Current visit: Yes Status: Acute Qualifiers: Hypertension type: unspecified Qualified Code(s): I10 - Essential (primary ) hypertension Category: Medical Code(s): I10 - Essential (primary) hypertension (3) Peripheral edema Current visit: Yes Status: Acute Category: Medical Code(s): R60.9 - Edema , unspecified (4) Pleural effusion Current visit: Yes Status: Acute Category: Medical Code(s): J90 - Pleural effusion, not elsewhere classified (5) Anemia associated with acute blood loss Problem details: mild anemia 11.7, asymptomatic. continue PNV with feso4 Current visit: No Status: Acute Category: Medical Code(s): D62 - Acute posthemorrhagic anemia (6) Breech presentation at Problem details: primary cs for delivery Current visit: No Status: Acute Category: Medical Code(s): O32.1XX0 - Maternal care for breech presentation, not applicable or unspecified (7) Delivered by section Problem details: continue routine postop care. Current visit: No Status: Acute Category: Medical Code(s): Z38.01 - Single liveborn , delivered by - Assessment and plan all Dx Assessment and Plan for all problems:: As above.
--- NOTE | 2017-07-29 10:18 | CA_ITS ---
PROCEDURE: 2-D M-mode and color Doppler study INDICATIONS FOR THE TEST: Chest pain COPD Heart Murmur Tobacco Smoking Palpitations Fatigue Syncope Edema+ Hypertension+Diabetes Mellitus Rheumatic Fever SOB+TAVERAS Obesity Hyperlipidemia Family History HD Additional History P;OST 07/17/17, NATHANIEL PLEURAL EFFU PATIENT INFORMATION HEIGHT: 67 WEIGHT:218 GENDER: Female B/P:169/79 2-D/M-MODE INTERPRETATION: 2-D MEASUREMENTS OBSERVED VALUES IN CMS Right Ventricular Dimension (RVDd) 2.2 Interventricular Septum (Thickness)(IVsd) 1.0 Left Ventricular Internal Dimensions(LVIDd) 5.4 Left Ventricular Posterior Wall (Thickness)(LVPWd) 1.0 Aortic Root 2.6 Aortic Cusp Separation 2.1 Left Atrial Dimensions (LAD) 4.0 2D 1. Left atrium is upper limit of the normal size, left ventricle is normal size, there is no concentric left ventricular hypertrophy, visually estimated ejection fraction 55% with no obvious regional wall motion abnormality. 2. The right atrium and right ventricle are relatively normal size and function 3. The aortic, mitral and tricuspid valve are grossly normal. 4. The pulmonic valve is poorly visualized 5. No significant pericardial effusion noted. DOPPLER INTERROGATION: Doppler interrogation of the aortic, mitral and tricuspid valvular presence of mild mitral and tricuspid regurgitation, tricuspid and jet velocity insufficient for calculation of the right ventricular systolic pressure, diastolic parameters are within normal range. CONCLUSION: 1. Normal left ventricular size, preserved left ventricular systolic function, visually estimated ejection fraction of 55% with no obvious regional wall motion abnormality, diastolic parameters are within normal range. 2. Mild mitral and tricuspid regurgitation 3. No significant pericardial effusion noted.
--- NOTE | 2017-07-29 15:16 | PC.NURSE ---
LATE ENTRY NOTE: DR. CARVER AT BEDSIDE 0745 FOR ROUNDS. INFORMED OF MAGNESIUM LEVEL OF 7. PROTOCOL FOR MAGNESIUM TO DISCONTINUE DRIP AT THIS LEVEL. INFORMED THAT DR. SHELL WILL BE OVER TODAY FOR ROUNDS AND WOULD DISCONTINUE THE MAG DRIP. WILL CONTINUE TO MONITOR. ALL VSS. CALL LIGHT WITHIN REACH.
--- NOTE | 2017-07-29 18:52 | PC.NURSE ---
PATIENT MOVED FROM ICU TO 2ND FLOOR TODAY. RESTING IN BED AT THIS TIME, DENIES ANY NEEDS, WILL CONTINUE TO MONITOR.
--- NOTE | 2017-07-29 19:09 | PC.NURSE ---
report givent shimon sotelo
--- NOTE | 2017-07-29 19:34 | PC.NURSE ---
REPORT GIVEN TO [facility]
[2017-07-30] VITALS: BP 116/72; PULSE 78; RESP 17; TEMP 36.6; O2SAT 91
--- NOTE | 2017-07-30 02:30 | PC.NURSE ---
PT ALERT AND ORIENTED X 3. HAS RESTED WELL THROUGHOUT NIGHT. S/P C SECTION ABDOMINAL INCISION APPROXIMATED, NO S/S OF INFECTION NOTED. COVERED WITH STERI STRIPS, C/D/I. NO C/O OF PAIN OR DISCOMFORT THIS SHIFT, PT DID C/O OF SHORTNESS OF BREATH WITH EXERTION YESTERDAY, NO C/O ON THIS SHIFT. LUNGS SOUNDS ARE CLEAR, DIMINISHED IN BASES. TRACE EDEMA NOTED BLE. IV SITE RT AC, PATENT, NO REDNESS OR EDEMA. DRG C/D/I. SAT 91-94% ON RA. VS WNL. LYING IN BED WITH EYES CLOSED RESTING AT THIS TIME, CALL LIGHT WITHIN REACH, WILL CONTINUE TO MONITOR.
[2017-07-30 03:45] VITALS: BP 104/55; PULSE 89; RESP 18; TEMP 36.6; O2SAT 92
[2017-07-30 07:35] VITALS: BP 135/82; PULSE 78; RESP 18; TEMP 36.5; O2SAT 94
--- NOTE | 2017-07-30 08:09 | P.PN_ITS ---
Internal Medicine - PN: Subj *Date: 07/30/17 *Time: 08:08 Exam Vital signs and Labs for Last 24 Hours: Temp Pulse Resp BP Pulse Ox 97.7 F 78 18 135/82 94 L 07/30/17 07:35 07/30/17 07:35 07/30/17 07:35 07/30/17 07:35 07/30/17 07:35 I & O for Last 24 hours: Intake & Output 07/27/17 07/28/17 07/29/17 07/30/17 23:59 23:59 23:59 23:59 Intake Total 1791 / 1791 3531 / 3531 2947 / 2947 720 / 720 Output Total 5750 / 5750 3900 / 3900 3440 / 3440 3600 / 3600 Balance -3959 / -3959 -369 / -369 -493 / -493 -2880 / -2880 Weight 98.883 kg 97.522 kg 95.254 kg Assessment and Plan (1) Dyspnea Current visit: Yes Status: Acute Qualifiers: Dyspnea type: shortness of breath Qualified Code(s): R06.02 - Shortness of breath; R06.00 - Dyspnea, unspecified; R06.01 - Orthopnea Category: Medical Code(s): R06.00 - Dyspnea, unspecified (2) Hypertension Current visit: Yes Status: Acute Qualifiers: Hypertension type: unspecified Qualified Code(s): I10 - Essential (primary ) hypertension Category: Medical Code(s): I10 - Essential (primary) hypertension (3) Peripheral edema Current visit: Yes Status: Acute Category: Medical Code(s): R60.9 - Edema , unspecified (4) Pleural effusion Current visit: Yes Status: Acute Category: Medical Code(s): J90 - Pleural effusion, not elsewhere classified (5) Anemia associated with acute blood loss Problem details: mild anemia 11.7, asymptomatic. continue PNV with feso4 Current visit: No Status: Acute Category: Medical Code(s): D62 - Acute posthemorrhagic anemia (6) Breech presentation at Problem details: primary cs for delivery Current visit: No Status: Acute Category: Medical Code(s): O32.1XX0 - Maternal care for breech presentation, not applicable or unspecified (7) Delivered by section Problem details: continue routine postop care. Current visit: No Status: Acute Category: Medical Code(s): Z38.01 - Single liveborn , delivered by The patient's infection will respond to the chosen ABx?: Yes Is the patient receiving the right drug, dose, and route?: Yes Could a more targeted ABx be ordered?: No (CX NEGATIVE OF THIS NOTE)
--- NOTE | 2017-07-30 08:18 | HMH.ACPN2 ---
Internal Medicine - PN: Subj *Date: 07/30/17 *Time: 08:18 Interval history: She is feeling much better this morning. She is eating and drinking and ambulating. She is voiding well. Her blood pressure has normalized. She denies any headache. She does have some shortness of breath on exertion but otherwise is doing well. She had her echocardiogram and the results showed that she has a normal ejection fraction with some mild regurg in both the mitral and tricuspid valves but otherwise a normal scan. At this point in time I believe that we have maximized her in-hospital management and she should be able to go home today. Exam Vital signs and Labs for Last 24 Hours: Temp Pulse Resp BP Pulse Ox 97.7 F 78 18 135/82 94 L 07/30/17 07:35 07/30/17 07:35 07/30/17 07:35 07/30/17 07:35 07/30/17 07:35 I & O for Last 24 hours: Intake & Output 07/27/17 07/28/17 07/29/17 07/30/17 11:59 11:59 11:59 11:59 Intake Total 3072 / 3072 3997 / 3997 1920 / 1920 Output Total 4700 / 4700 1550 / 1550 6100 / 6100 4340 / 4340 Balance -4700 / -4700 1522 / 1522 -2103 / -2103 -2420 / -2420 Weight 215 lb 210 lb - Constitutional no acute distress Assessment and Plan (1) Dyspnea Current visit: Yes Status: Acute Qualifiers: Dyspnea type: shortness of breath Qualified Code(s): R06.02 - Shortness of breath; R06.00 - Dyspnea, unspecified; R06.01 - Orthopnea Category: Medical Code(s): R06.00 - Dyspnea, unspecified (2) Hypertension Current visit: Yes Status: Acute Qualifiers: Hypertension type: unspecified Qualified Code(s): I10 - Essential (primary) hypertension Category: Medical Code(s): I10 - Essential (primary) hypertension (3) Peripheral edema Current visit: Yes Status: Acute Category: Medical Code(s): R60.9 - Edema, unspecified (4) Pleural effusion Current visit: Yes Status: Acute Category: Medical Code(s): J90 - Pleural effusion, not elsewhere classified (5) Anemia associated with acute blood loss Problem details: mild anemia 11.7, asymptomatic. continue PNV with feso4 Current visit: No Status: Acute Category: Medical Code(s): D62 - Acute posthemorrhagic anemia (6) Breech presentation at Problem details: primary cs for delivery Current visit: No Status: Acute Category: Medical Code(s): O32.1XX0 - Maternal care for breech presentation, not applicable or unspecified (7) Delivered by section Problem details: continue routine postop care. Current visit: No Status: Acute Category: Medical Code(s): Z38.01 - Single liveborn infant, delivered by - Assessment and plan all Dx Assessment and Plan for all problems:: She should be able to go home today. We will send her home on labetalol 200 mg 3 times daily, nifedipine 10 mg 4 times daily and Lasix 20 mg. She should continue with an oral antibiotic when she goes home since there was some consolidation in her right lung. However all the blood cultures as well as viral cultures were negative. She has remained afebrile. I will follow-up with her next week in the office. Will check her potassium level since she has been on Lasix.
--- NOTE | 2017-07-30 08:21 | P.PN_ITS ---
Internal Medicine - PN: Subj *Date: 07/30/17 *Time: 08:18 Interval history: She is feeling much better this morning. She is eating and drinking and ambulating. She is voiding well. Her blood pressure has normalized. She denies any headache. She does have some shortness of breath on exertion but otherwise is doing well. She had her echocardiogram and the results showed that she has a normal ejection fraction with some mild regurg in both the mitral and tricuspid valves but otherwise a normal scan. At this point in time I believe that we have maximized her in-hospital management and she should be able to go home today. Exam Vital signs and Labs for Last 24 Hours: Temp Pulse Resp BP Pulse Ox 97.7 F 78 18 135/82 94 L 07/30/17 07:35 07/30/17 07:35 07/30/17 07:35 07/30/17 07:35 07/30/17 07:35 I & O for Last 24 hours: Intake & Output 07/27/17 07/28/17 07/29/17 07/30/17 11:59 11:59 11:59 11:59 Intake Total 3072 / 3072 3997 / 3997 1920 / 1920 Output Total 4700 / 4700 1550 / 1550 6100 / 6100 4340 / 4340 Balance -4700 / -4700 1522 / 1522 -2103 / -2103 -2420 / -2420 Weight 215 lb 210 lb - Constitutional no acute distress Assessment and Plan (1) Dyspnea Current visit: Yes Status: Acute Qualifiers: Dyspnea type: shortness of breath Qualified Code(s): R06.02 - Shortness of breath; R06.00 - Dyspnea, unspecified; R06.01 - Orthopnea Category: Medical Code(s): R06.00 - Dyspnea, unspecified (2) Hypertension Current visit: Yes Status: Acute Qualifiers: Hypertension type: unspecified Qualified Code(s): I10 - Essential (primary ) hypertension Category: Medical Code(s): I10 - Essential (primary) hypertension (3) Peripheral edema Current visit: Yes Status: Acute Category: Medical Code(s): R60.9 - Edema , unspecified (4) Pleural effusion Current visit: Yes Status: Acute Category: Medical Code(s): J90 - Pleural effusion, not elsewhere classified (5) Anemia associated with acute blood loss Problem details: mild anemia 11.7, asymptomatic. continue PNV with feso4 Current visit: No Status: Acute Category: Medical Code(s): D62 - Acute posthemorrhagic anemia (6) Breech presentation at Problem details: primary cs for delivery Current visit: No Status: Acute Category: Medical Code(s): O32.1XX0 - Maternal care for breech presentation, not applicable or unspecified (7) Delivered by section Problem details: continue routine postop care. Current visit: No Status: Acute Category: Medical Code(s): Z38.01 - Single liveborn , delivered by - Assessment and plan all Dx Assessment and Plan for all problems:: She should be able to go home today. We will send her home on labetalol 200 mg 3 times daily, nifedipine 10 mg 4 times daily and Lasix 20 mg. She should continue with an oral antibiotic when she goes home since there was some consolidation in her right lung. However all the blood cultures as well as viral cultures were negative. She has remained afebrile. I will follow-up with her next week in the office. Will check her potassium level since she has been on Lasix.
--- NOTE | 2017-07-30 09:33 | HMH.ACPN2 ---
Internal Medicine - PN: Subj *Date: 07/30/17 *Time: 09:33 Interval history: She is ready for discharge. See also Dr. Whitley's note. I would concur with her take-home medications but I am going to order the nifedipine 3 times daily so she can take it concurrent with the labetalol. She will be seen in follow-up seen by Dr. Whitley and by Dr. Rivera. She is able to continue breast-feeding. Exam Vital signs and Labs for Last 24 Hours: Temp Pulse Resp BP Pulse Ox 97.7 F 78 18 135/82 94 L 07/30/17 07:35 07/30/17 07:35 07/30/17 07:35 07/30/17 07:35 07/30/17 07:35 I & O for Last 24 hours: Intake & Output 07/27/17 07/28/17 07/29/17 07/30/17 11:59 11:59 11:59 11:59 Intake Total 3072 / 3072 3997 / 3997 1920 / 1920 Output Total 4700 / 4700 1550 / 1550 6100 / 6100 4340 / 4340 Balance -4700 / -4700 1522 / 1522 -2103 / -2103 -2420 / -2420 Weight 215 lb 210 lb - Constitutional no acute distress - *Routine HEENT Exam Eye: Present: PERRL ENT: Present: mucous membranes moist - *Routine Neck Exam Present: supple Comments: Though with some discomfort she states. - *Routine Respiratory Exam Present: CTA bilaterally Comments: Only a few bibasilar rales, subtle. - *Routine Cardiovascular Exam Present: RRR Comments: Echo report noted. - *Routine Abdominal Exam Present: soft - *Routine Extremities Exam Comments: GREGORY hose in place but there is no edema. - *Routine Neurological Exam Present: alert, oriented X3. Absent: clonus Assessment and Plan (1) Hypertension Current visit: Yes Status: Acute Qualifiers: Hypertension type: unspecified Qualified Code(s): I10 - Essential (primary) hypertension Category: Medical Code(s): I10 - Essential (primary) hypertension (2) Dyspnea Current visit: Yes Status: Acute Qualifiers: Dyspnea type: shortness of breath Qualified Code(s): R06.02 - Shortness of breath; R06.00 - Dyspnea, unspecified; R06.01 - Orthopnea Category: Medical Code(s): R06.00 - Dyspnea, unspecified (3) Peripheral edema Current visit: Yes Status: Acute Category: Medical Code(s): R60.9 - Edema, unspecified (4) Pleural effusion Current visit: Yes Status: Acute Category: Medical Code(s): J90 - Pleural effusion, not elsewhere classified (5) Anemia associated with acute blood loss Problem details: mild anemia 11.7, asymptomatic. continue PNV with feso4 Current visit: No Status: Acute Category: Medical Code(s): D62 - Acute posthemorrhagic anemia (6) Breech presentation at Problem details: primary cs for delivery Current visit: No Status: Acute Category: Medical Code(s): O32.1XX0 - Maternal care for breech presentation, not applicable or unspecified (7) Delivered by section Problem details: continue routine postop care. Current visit: No Status: Acute Category: Medical Code(s): Z38.01 - Single liveborn , delivered by - Assessment and plan all Dx Assessment and Plan for all problems:: Discharge with follow-up.
--- NOTE | 2017-07-30 09:36 | P.PN_ITS ---
Internal Medicine - PN: Subj *Date: 07/30/17 *Time: 09:33 Interval history: She is ready for discharge. See also Dr. Whitley's note. I would concur with her take-home medications but I am going to order the nifedipine 3 times daily so she can take it concurrent with the labetalol. She will be seen in follow- up seen by Dr. Whitley and by Dr. Rivera. She is able to continue breast- feeding. Exam Vital signs and Labs for Last 24 Hours: Temp Pulse Resp BP Pulse Ox 97.7 F 78 18 135/82 94 L 07/30/17 07:35 07/30/17 07:35 07/30/17 07:35 07/30/17 07:35 07/30/17 07:35 I & O for Last 24 hours: Intake & Output 07/27/17 07/28/17 07/29/17 07/30/17 11:59 11:59 11:59 11:59 Intake Total 3072 / 3072 3997 / 3997 1920 / 1920 Output Total 4700 / 4700 1550 / 1550 6100 / 6100 4340 / 4340 Balance -4700 / -4700 1522 / 1522 -2103 / -2103 -2420 / -2420 Weight 215 lb 210 lb - Constitutional no acute distress - *Routine HEENT Exam Eye: Present: PERRL ENT: Present: mucous membranes moist - *Routine Neck Exam Present: supple Comments: Though with some discomfort she states. - *Routine Respiratory Exam Present: CTA bilaterally Comments: Only a few bibasilar rales, subtle. - *Routine Cardiovascular Exam Present: RRR Comments: Echo report noted. - *Routine Abdominal Exam Present: soft - *Routine Extremities Exam Comments: GREGORY hose in place but there is no edema. - *Routine Neurological Exam Present: alert, oriented X3. Absent: clonus Assessment and Plan (1) Hypertension Current visit: Yes Status: Acute Qualifiers: Hypertension type: unspecified Qualified Code(s): I10 - Essential (primary ) hypertension Category: Medical Code(s): I10 - Essential (primary) hypertension (2) Dyspnea Current visit: Yes Status: Acute Qualifiers: Dyspnea type: shortness of breath Qualified Code(s): R06.02 - Shortness of breath; R06.00 - Dyspnea, unspecified; R06.01 - Orthopnea Category: Medical Code(s): R06.00 - Dyspnea, unspecified (3) Peripheral edema Current visit: Yes Status: Acute Category: Medical Code(s): R60.9 - Edema , unspecified (4) Pleural effusion Current visit: Yes Status: Acute Category: Medical Code(s): J90 - Pleural effusion, not elsewhere classified (5) Anemia associated with acute blood loss Problem details: mild anemia 11.7, asymptomatic. continue PNV with feso4 Current visit: No Status: Acute Category: Medical Code(s): D62 - Acute posthemorrhagic anemia (6) Breech presentation at Problem details: primary cs for delivery Current visit: No Status: Acute Category: Medical Code(s): O32.1XX0 - Maternal care for breech presentation, not applicable or unspecified (7) Delivered by section Problem details: continue routine postop care. Current visit: No Status: Acute Category: Medical Code(s): Z38.01 - Single liveborn infant, delivered by - Assessment and plan all Dx Assessment and Plan for all problems:: Discharge with follow-up.
--- NOTE | 2017-07-30 21:40 | HMH.DCSUM ---
General - General Admission date: 07/27/17 Discharge date: 07/30/17 HPI HPI: Ms. Syed is a 42yo female who just had a section on 07/17/17 at this hospital by Dr. Steen. She states that ever since she went home, she has had shortness of air, cough, wheezing, and generalized edema but worse in her feet. She then developed a cough and sore throat and began coughing up pink bloody phlegm. She has some generalized burning chest pain from her throat down. She has some mild sore throat. No rhinorrhea at all. She states she is aching all over and is chilling. No fever. She states she had no problems with or delivery. She was admitted and received 1 dose of labetalol 20 mg IV as well as 40 [address] of [address]. Her CT scan was negative for a pulmonary embolus. Dr. Steen has seen her and was concerned about cardiomyopathy. He wanted to continue with labetalol 200 mg twice daily and start magnesium sulfate as well. He ordered a 4 g bolus and 2 g an hour, however her pump was running at 3g/hr and this was corrected by the nurse this am. Hospital Course Hospital Course: Her CXR showed mild cardiomegaly with bilateral pleural effusions. There were ill-defined opacities in the perihilar regions and at the right cardiophrenic angle. The patient was started on labetalol for her BP and magnesium to cover for preeclampsia. A PCR respiratory panel was ordered and was negative. Her BP remained high, therefore her labetalol dose was increased to 200 mg 3 times daily. Lasix 20 mg twice daily was added as well. Her BP continued to remain elevated. Nifedipine 10 mg tid was started. She diuresed a significant amount of fluid and a repeat CXR showed improvement in the heart failure. There was still a small amount of consolidation in the lower right lung possibly consistent with pneumonia. She was receiving ceftriaxone for her pneumonia. Her blood pressure normalized and she was afebrile. Her magnesium sulfate was stopped and her lee was removed. Her lasix dose was reduced to 20 mg daily. She had an echocardiogram and it showed that she has a normal ejection fraction with some mild regurg in both the mitral and tricuspid valves but otherwise a normal scan. Dr. Rodriguez and Enio felt she was stable to be discharged home on labetalol 200 mg 3 times daily, nifedipine 10 mg tid, and Lasix 20 mg daily. She would continue with an oral antibiotic d/t the consolidation in her right lung. She will f/u with Dr. Steen and Dr. Rivera. Objective Vital signs: Temp Pulse Resp BP Pulse Ox 97.7 F 78 18 135/82 94 L 07/30/17 07:35 07/30/17 07:35 07/30/17 07:35 07/30/17 07:35 07/30/17 07:35 Narrative: - Constitutional Comments: Does not appear to feel well - *Routine HEENT Exam Head: Present: normocephalic, atraumatic Eye: Present: EOMI, PERRL ENT: Present: mucous membranes moist - *Routine Neck Exam Present: supple, full ROM - *Routine Respiratory Exam Present: wheezes (faint), crackles (faint basilar rales) - *Routine Cardiovascular Exam Present: RRR - *Routine Abdominal Exam Present: soft, normoactive bowel sounds. Absent: tenderness - *Routine Extremities Exam Present: edema (2+ pretibial edema bilaterally, minimal edema of hands) - *Routine Skin Exam Present: intact - *Routine Neurological Exam Present: alert, oriented X3 DS: Diagnosis - Discharge Diagnosis (1) Dyspnea Status: Acute (2) Hypertension Status: Acute (3) Peripheral edema Status: Acute (4) Pleural effusion Status: Acute (5) Anemia associated with acute blood loss Status: Acute Problem details: mild anemia 11.7, asymptomatic. continue PNV with feso4 (6) Breech presentation at Status: Acute Problem details: primary cs for delivery (7) Delivered by section Status: Acute Problem details: continue routine postop care. Disc
--- NOTE | 2017-07-30 21:54 | P.DS_ITS ---
General - General Admission date: 07/27/17 Discharge date: 07/30/17 HPI HPI: Ms. Syed is a 42yo female who just had a section on 07/17/17 [address]. Steen. She states that ever since she went home, she has had shortness of air, cough, wheezing, and generalized edema but worse in her feet. She then developed a cough and sore throat and began coughing up pink bloody phlegm. She has some generalized burning chest pain from her throat down. She has some mild sore throat. No rhinorrhea at all. She states she is aching all over and is chilling. No fever. She states she had no problems with or delivery. She was admitted and received 1 dose of labetalol 20 mg IV as well as [address] Her CT scan was negative for a pulmonary embolus. Dr. Steen has seen her and was concerned about cardiomyopathy. He wanted to continue with labetalol 200 mg twice daily and start magnesium sulfate as well. He ordered a 4 g bolus and 2 g an hour, however her pump was running at 3g/hr and this was corrected by the nurse this am. Hospital Course Hospital Course: Her CXR showed mild cardiomegaly with bilateral pleural effusions. There were ill-defined opacities in the perihilar regions and at the right cardiophrenic angle. The patient was started on labetalol for her BP and magnesium to cover for preeclampsia. A PCR respiratory panel was ordered and was negative. Her BP remained high, therefore her labetalol dose was increased to 200 mg 3 times daily. Lasix 20 mg twice daily was added as well. Her BP continued to remain elevated. Nifedipine 10 mg tid was started. She diuresed a significant amount of fluid and a repeat CXR showed improvement in the heart failure. There was still a small amount of consolidation in the lower right lung possibly consistent with pneumonia. She was receiving ceftriaxone for her pneumonia. Her blood pressure normalized and she was afebrile. Her magnesium sulfate was stopped and her lee was removed. Her lasix dose was reduced to 20 mg daily. She had an echocardiogram and it showed that she has a normal ejection fraction with some mild regurg in both the mitral and tricuspid valves but otherwise a normal scan. Dr. Rodriguez and Enio felt she was stable to be discharged home on labetalol 200 mg 3 times daily, nifedipine 10 mg tid, and Lasix 20 mg daily. She would continue with an oral antibiotic d/t the consolidation in her right lung. She will f/u with Dr. Steen and Dr. Rivera. Objective Vital signs: Temp Pulse Resp BP Pulse Ox 97.7 F 78 18 135/82 94 L 07/30/17 07:35 07/30/17 07:35 07/30/17 07:35 07/30/17 07:35 07/30/17 07:35 Narrative: - Constitutional Comments: Does not appear to feel well - *Routine HEENT Exam Head: Present: normocephalic, atraumatic Eye: Present: EOMI, PERRL ENT: Present: mucous membranes moist - *Routine Neck Exam Present: supple, full ROM - *Routine Respiratory Exam Present: wheezes (faint), crackles (faint basilar rales) - *Routine Cardiovascular Exam Present: RRR - *Routine Abdominal Exam Present: soft, normoactive bowel sounds. Absent: tenderness - *Routine Extremities Exam Present: edema (2+ pretibial edema bilaterally, minimal edema of hands) - *Routine Skin Exam Present: intact - *Routine Neurological Exam Present: alert, oriented X3 DS: Diagnosis - Discharge Diagnosis (1) Dyspnea Status: Acute (2) Hypertension Status: Acute (3) Peripheral aden
== END 2017-07-30 11:04 | disposition home or self-care (01) | DRG 776 ==
LOC: ER 07-27 04:11 → 2ND 07-27 05:13 → ICU 07-27 19:13 → 2ND 07-29 16:46
PROVIDERS: Nurse Practitioner Obstetrics & Gynecology; Physician Assistant; Admitting Provider Family Medicine; Emergency Provider Emergency Medicine; Family Provider Family Medicine; PCP Family Medicine; Visit Provider Family Medicine
DX: J18.9 Pneumonia, unspecified organism (principal); J90 Pleural effusion, not elsewhere classified; O11.5 Pre-existing hypertension with pre-eclampsia, complicating the puerperium; O90.3 Peripartum cardiomyopathy; O99.03 Anemia complicating the puerperium; O10.03 Pre-existing essential hypertension complicating the puerperium; O90.89 Other complications of the puerperium, not elsewhere classified; Z82.49 Family history of ischemic heart disease and other diseases of the circulatory system; Z88.0 Allergy status to penicillin; Z87.891 Personal history of nicotine dependence; Z80.9 Family history of malignant neoplasm, unspecified; Z79.899 Other long term (current) drug therapy
CPT/HCPCS: 36415; 71046; 71275; 80048; 80053; 81001; 82043; 82550; 82553; 83605; 83735; 83880; 84436; 84443; 84479; 84484; 85025; 87040; 87275; 87276; 87430; 87486; 87581; 87633; 87798; 93005; 93306; 96365; 96375; 99285; Q9967

== ENCOUNTER → 2022-12-10 15:56 | Outpatient (CLI) | payer BC, SELFPAY ==
--- NOTE | 2022-12-10 16:00 | MM_ITS ---
PROCEDURE INFORMATION: Exam: Bilateral Screening 3D Mammography Exam date and time: 12/10/2022 3:55 PM Age: 47 years old Clinical indication: Baseline. No family history of breast cancer. TECHNIQUE: Imaging protocol: Bilateral Screening tomosynthesis and 2D mammography including computer-aided detection (CAD) when performed. COMPARISON: No relevant prior studies available. FINDINGS: MAMMOGRAPHY: Breast composition: There are scattered areas of fibroglandular density. Mass: None. Architectural distortion: None. Calcifications: No suspicious calcifications. Asymmetric density: None. Skin thickening: None. Axillary adenopathy: None. IMPRESSION: No mammographic evidence of malignancy. Annual screening is recommended unless otherwise clinically indicated. ASSESSMENT: BI-RADS Category 1: Negative
== END ==
PROVIDERS: PCP Family Medicine; Visit Provider Nurse Practitioner Obstetrics & Gynecology
DX: Z12.31 Encounter for screening mammogram for malignant neoplasm of breast (principal)
CPT/HCPCS: 77063; 77067

== ENCOUNTER 2024-10-29 09:49 | Outpatient (CLI) | payer BC, SELFPAY ==
--- OUTSIDE RECORDS SUMMARY | 2024-11-02 10:18 | XMS_ITS | Clinical Summary ---
Author Organization [facility] Address [address] [place] [address] Phone Care Team Providers Care [employer] Coach Name Role Phone Kai Khan MD Primary Care Provider [phone] Allergies Active Allergy Reactions Criticality Noted Date Comments Penicillin G Anaphylaxis High 09/16/2022 Medications cholecalciferol, vitamin D3, 10 mcg (400 unit) Oral Tablet Take 1 Tablet by mouth daily. Active cetirizine (ZYRTEC) 10 mg Oral Tablet Take 10 mg by mouth daily. Active Medical History Medical History Date Comments CHF (congestive heart failure) (FORM[facility]) Social History Tobacco Use Types Packs/Day Years Used Date Smoking Tobacco: Every Day Cigarettes Smokeless Tobacco: Never Tobacco Cessation:Ready to Q uit: Not Asked; Counseling Given: Not Answered Alcohol Use Standard Drinks/Week Comments Not Currently 0 (1 standard drink = 0.6 oz pur e alcohol) Comments Unknown Sex and Gender Information Value Date Recorded Sex Assigned at Not on file Legal Sex Female 8:23 PM EDT Gender Identity Not on file Sexual Orientation Not on file Obstetrics History Last Filed Vital Signs Vital Sign Reading Time Taken Comments Blood Pressure 100/56 09/16/2022 8:38 PM EDT Pulse 96 09/16/2022 8:27 PM EDT Temperature 36.7 C (98 F) 09/16/2022 8:27 PM EDT Respiratory Rate 18 09/16/2022 8:27 PM EDT Oxygen Saturation 96% 09/16/2022 8:27 PM EDT Inhaled Oxygen Concentration - - Weight 63.5 kg (140 lb) 09/16/2022 9:45 PM EDT Height - - Body Mass Index - - Plan of Treatment Health Maintenance Due Date Last Done Comments Annual Wellness Exam 07/14/1978 DTaP/TDaP/Td (1 - Tdap) 07/14/1994 Hepatitis B Vaccine (1 of 3 - 19+ 3-dose series) 07/14/1994 Pneumococcal Vaccine 0-49 (1 of 2 - PCV) 07/14/1994 Cervical Cancer Screening 07/14/1996 Pap Smear 07/14/1996 HPV/Pap Cotest 07/14/2005 Breast Cancer Screening 2015 Cologuard 07/14/2020 Colon Cancer Screening 07/14/2020 Colonoscopy 07/14/2020 FIT 07/14/2020 Sigmoidoscopy 07/14/2020 Virtual Colonography 07/14/2020 COVID-19 Vaccine (2023-2 5 season) 2024 01/12/2021, 12/22/2020 Influenza Vaccine (Season Ended) 2025 03/07/2020 Meningococcal B Vaccine Aged Out No l onger eligible based on patient's age to complete this topic Insurance [employer] Care Teams [employer] Hockey [employer] Lacrosse Coach Relationship Specialty Start Date End Date Kai Khan MD [address] [place] [id number] PCP - General Internal Medicine-Hematology and Oncology 09/16/22
== END 2024-10-29 23:59 | disposition home or self-care (01) ==
LOC: LAB.DROPOF 11-02 09:49
PROVIDERS: PCP Nurse Practitioner; Visit Provider Nurse Practitioner
DX: R30.0 Dysuria (principal)
CPT/HCPCS: 87086; 87088; 87186